=== PATIENT | male | born 1990 | race Caucasian/White ===

== ENCOUNTER → 2017-12-10 | Outpatient (CLI) | payer OTHER ==
--- NOTE | 2017-12-11 14:40 | USB ---
Reason for exam: clinical finding. Physical Findings: Nurse Summary: Left breast swollen and tender. US Breast LT Left complete breast ultrasound includes all four quadrants, the retroareolar region and axilla. Finding demonstrates no suspicious sonographic findings. No discrete abnormality to correspond to the patients pain and no solid or cystic mass. These results were verbally communicated with the patient and result sheet given to the patient on 12/10/17. ASSESSMENT: Negative, BI-RAD 1 RECOMMENDATION: Clinical management.
== END | disposition home or self-care (01) ==
LOC: RADUSWWP 14:13
PROVIDERS: ATTEND Family Medicine
DX: N62 Hypertrophy of breast (principal)

== ENCOUNTER 2018-01-26 00:32 | Emergency (ER) | payer OTHER ==
[2018-01-26 00:38] VITALS: TEMP 98.2
[2018-01-26 01:22] LABS: Basophils # (A) 0.1 k/uL (0-0.2); Basophils % (A) 1 %; Eosinophils # (A) 0.2 k/uL (0-0.7); Eosinophils % (A) 1 %; HCT 43.4 % (39.0-53.0); HGB 14.6 gm/dL (13.0-17.5); Lymphocytes # (A) 3.4 k/uL (1.0-4.8); Lymphocytes % (A) 28 %; MCH 29.8 pg (25.0-35.0); MCHC 33.6 g/dL (31.0-37.0); MCV 88.7 fL (80.0-100.0); Mean Platelet Volume 6.6; Monocytes # (A) 0.7 k/uL (0-1.0); Monocytes % (A) 5 %; Neutrophils # (A) 7.9 k/uL (1.3-7.7); Neutrophils % (A) 64 %; Platelet Count 345 k/uL (150-450); RBC 4.89 m/uL (4.30-5.90); RDW 12.6 % (11.5-15.5); WBC 12.4 k/uL (3.8-10.6)
[2018-01-26 01:30] LABS: INR 1.1 (<1.2); Partial Thromboplastin Time 23.2 sec (22.0-30.0); Prothrombin Time 10.4 sec (9.0-12.0)
[2018-01-26 01:33] LABS: ALT 63 U/L (21-72); AST 38 U/L (17-59); Albumin 4.5 g/dL (3.5-5.0); Alkaline Phosphatase 65 U/L (38-126); Anion Gap 12 mmol/L; Blood Urea Nitrogen 17 mg/dL (9-20); Carbon Dioxide 24 mmol/L (22-30); Chloride 104 mmol/L (98-107); Glucose 93 mg/dL (74-99); Magnesium 1.7 mg/dL (1.6-2.3); Potassium 3.7 mmol/L (3.5-5.1); Sodium 140 mmol/L (137-145); Total Bilirubin 0.4 mg/dL (0.2-1.3); Total Protein 7.5 g/dL (6.3-8.2)
--- NOTE | 2018-01-26 01:37 | XR ---
EXAMINATION TYPE: XR chest 2V DATE OF EXAM: 01/26/2018 COMPARISON: NONE HISTORY: Chest pain TECHNIQUE: Frontal and lateral views of the chest are obtained. FINDINGS: Heart and mediastinum are normal. Lungs are clear. Diaphragm is normal. Bony thorax appear s normal. IMPRESSION: Normal chest
[2018-01-26 01:43] LABS: Creatine Kinase 126 U/L (55-170)
[2018-01-26 01:56] LABS: Creatine Kinase MB 0.9 ng/mL (0.0-2.4); Troponin I <0.012 ng/mL (0.000-0.034)
--- NOTE | 2018-01-26 02:28 | ED ---
Chest Pain HPI - General Source: patient Mode of arrival: ambulatory Limitations: no limitations <Karis Feliz - Last Filed: 01/26/18 03:35> <Nitza Cespedes - Last Filed: 01/26/18 07:08> - General Chief Complaint: Chest Pain Stated Complaint: chest pain Time Seen by Provider: 01/26/18 01:33 - History of Present Illness Initial Comments: 27-year-old male patient presents to the emergency department today for complaints of left-sided chest pain. Patient states that symptoms started about 5 days ago. States that the pain is sharp and stabbing to the left side of the chest that radiates through to his back. Patient states when the pain is present he does have some cramping in his left arm as well. Patient states that the pain takes his breath away. He states the pain seems to come on mostly when he is lying in bed. Patient states that he is able to get the pain to resolve after taking deep breaths and walking around. He denies any nausea, vomiting, or sweats with this. Denies any palpitations. Denies any recent cough, congestion, or fevers. Patient denies any history of similar symptoms. States he does have a family history of CVA and heart disease. Patient denies any recent rash, fever, chills, abdominal pain, nausea, vomiting, diarrhea, constipation, back pain, numbness, tingling, dizziness, weakness, hematuria, dysuria, urinary urgency, urinary frequency, headache, visual changes, or any other complaints. (Karis Feliz) - Related Data Home Medications Medication Instructions Recorded Confirmed No Known Home Medications 01/26/18 01/26/18 Allergies Allergy/AdvReac Type Severity Reaction Status Date / Time cefaclor [From [facility]] Allergy Rash/Hives Verified 11/17/13 17:03 Review of Systems ROS Other: All systems not noted in ROS Statement are negative. <Karis Feliz - Last Filed: 01/26/18 03:35> ROS Other: All systems not noted in ROS Statement are negative. <Nitza Cespedes - Last Filed: 01/26/18 07:08> ROS Statement: Those systems with pertinent positive or pertinent negative responses have been documented in the HPI. EKG Findings - EKG Comments: EKG Findings:: EKG obtained at 0103 shows normal sinus rhythm with sinus arrhythmia. Ventricular rate is 70, CT interval is 138, QRS duration is 88, QTC is 364, QTC is 393. No evidence of ST elevation or depression. <TriniKaris Avi - Last Filed: 01/26/18 03:35> Past Medical History Past Medical History: No Reported History History of Any Multi-Drug Resistant Organisms: None Reported Past Surgical History: Orthopedic Surgery Additional Past Surgical History / Comment(s): Right hand fx 7 yrs ago Additional Past Anesthesia/Blood Transfusion Reaction / Comment(s): No transfusion Past Psychological History: No Psychological Hx Reported Smoking Status: Former smoker Past Alcohol Use History: Rare Past Drug Use History: Marijuana <Karis Feliz Avi - Last Filed: 01/26/18 03:35> General Exam Limitations: no limitations General appearance: alert, in no apparent distress, other (This is a well- developed, well-nourished adult male patient no acute distress. Vital signs upon presentation are temperature 98.2F, pulse 66, respirations 18, blood pressure 138/95, pulse ox 95% on room air.) Eye exam: Present: normal appearance, PERRL, EOMI. Absent: scleral icterus, conjunctival injection, periorbital swelling ENT exam: Present: normal exam, normal oropharynx, mucous membranes moist Respiratory exam: Present: normal lung sounds bilaterally. Absent: respiratory distress, wheezes, rales, rhonchi, stridor, chest wall tenderness Cardiovascular Exam: Present: regular rate, normal rhythm, normal heart sounds. Absent: systolic murmur, diastolic murmur, rubs, gallop, clicks GI/Abdominal exam: Present: soft, normal bowel sounds. Absent: distended, tenderness, guarding, rebound, rigid Neurological exam: Present: alert, oriented X3, CN II-XII intact Psychiatric exam: Present: normal affect, normal mood Skin exam: Present: warm, dry, intact, normal color. Absent: rash <Karis Feliz Avi - Last Filed: 01/26/18 03:35> Vital Signs 01/26/18 01/26/18 00:34 02:42 Temperature 98.2 F 98.2 F Pulse Rate 66 80 Respiratory 18 19 Rate Blood Pressure 138/95 125/58 O2 Sat by Pulse 95 96 Oximetry Chest Pain MDM <Karis Feliz Avi - Last Filed: 01/26/18 03:35> <Nitza Cespedes - Last Filed: 01/26/18 07:08> - [facility] RADIOLOG[facility]:Two-view x-ray of the chest is obtained. Heart mediastinum are normal. Lungs are clear. Diaphragm is normal. Bony thorax appears normal. Impression by Dr. Daily shows normal chest. MDM: 27-year-old male patient presents to the emergency department today for evaluation of left-sided chest pain. Physical examination was relatively unremarkable. Lungs are clear to auscultation with good air movement. Patient had no chest wall tenderness. X-ray of the chest showed no acute cardiopulmonary process. Labs reviewed and were unremarkable. Cardiac enzymes were negative. Did discuss findings and results with the patient. We did discuss pleurisy as a possible cause for his symptoms. He does have an appointment with a marine cargo inspector on Wednesday, he is urged to keep this appointment. Return parameters were discussed in detail. He verbalizes understanding and agrees with this plan. (Karis Feliz) I was available for consultation in the emergency department. The history and physical exam were done by the midlevel provider. I was consulted for this patient's care. I reviewed the case with the midlevel provider and based on their presentation of the patient, I agree with the assessment, medical decision making and plan of care as documented. (Nitza Cespedes) Disposition Is patient prescribed a controlled substance at d/c from ED?: No Time of Disposition: 02:28 <Karis Feliz - Last Filed: 01/26/18 03:35> <Nitza Cespedes - Last Filed: 01/26/18 07:08> Clinical Impression: Chest pain Disposition: HOME SELF-CARE Condition: Good Instructions: Chest Pain (ED) Additional Instructions: Increase fluids. Follow up with cardiology as you have planned on Wednesday. Return here immediately for any new, worsening, or concerning symptoms. Referrals: Juan Wells MD [Primary Care Provider] - 1-2 days
[2018-01-26 02:44] VITALS: BP 125/58; PULSE 80; RESP 19
== END 2018-01-26 02:42 | disposition home or self-care (01) ==
LOC: EC 00:32
DX: R07.9 Chest pain, unspecified (principal); Z87.891 Personal history of nicotine dependence; Z98.890 Other specified postprocedural states; Z88.1 Allergy status to other antibiotic agents; Z82.49 Family history of ischemic heart disease and other diseases of the circulatory system
CPT/HCPCS: 36415; 71046; 80053; 82550; 82553; 83735; 84484; 85025; 85610; 85730; 93005; 99285

== ENCOUNTER 2018-02-07 09:39 | Day surgery (SDC) | payer OTHER ==
[2018-02-02 14:54] VITALS: BMI 34.2
[~2018-02-07 09:39] MED LIST: LACTATED RINGERS 1,000 ML IV SCH
[2018-02-07 10:02] VITALS: RESP 16; TEMP 97
[2018-02-07] MEDS ORDERED: LIDOCAINE 1% 20 ML VIAL (10MG/ML) FOR IV START INTRADERMA ONE (10:03)
[2018-02-07] MEDS ORDERED: PROPOFOL 10 MG/ML 20 ML VIAL IV ONE (10:17)
[2018-02-07] MEDS ORDERED: LIDOCAINE 1% INJ 10MG/ML (20 ML MDV) ONE (10:17)
[2018-02-07] MEDS ORDERED: GLYCOPYRROLATE 0.2 MG/ML 2 ML VIAL ONE (10:17)
--- NOTE | 2018-02-07 11:02 | P.PCN ---
Date of Procedure: 02/07/18 Procedure(s) Performed: Procedures: 1. Esophagogastroduodenoscopy and biopsy. 2. Colonoscopy and biopsy. Preoperative diagnosis: Abdominal pain, change in bowel habits and intermittent bleeding. Postoperative diagnosis: 1. Very small sliding hiatal hernia with no obvious preservatives complicated reflux disease. 2. Minimal gastritis and duodenitis. 3. Colon and terminal ileum essentially within normal limits with minor nonspecific changes in the terminal ileum not typical of inflammatory bowel disease. 4. Biopsies obtained from the duodenum, antrum, esophagus , terminal ileum and random colon. Preparation: HalfLytely prep. Sedation: Was provided by anesthesia. Brief clinical history: The patient is a 27-year-old male who I have evaluated recently because of change in bowel habits, intermittent bleeding and abdominal discomfort that he has been experiencing for the last 5 or 6 months. Prior to that, he was having regular bowel movements and had no prior GI complaints. This evaluation is to assess for inflammatory bowel disease or other pathology. Procedure: With the patient on his left lateral decubitus position and after informed consent and adequate sedation, I passed the Olympus-GIF 160 video upper endoscope through the cricopharyngeus down the esophagus. GE junction was around 40 mm from the incisors and there was a very small sliding hiatal hernia but no obvious esophagitis or complicated reflux disease. The endoscope was then passed into the stomach which was insufflated with air and inspected in detail including the retroflex view in the cardia. There was minimal mottling and erythema in the antrum. Pyloric channel did not show any ulcers. Duodenal bulb showed minimal erythema but no ulcers or erosions. Post bulbar area and descending duodenum appeared essentially within normal limits. I obtained biopsies from the duodenum, antrum and esophagus then the endoscope was withdrawn and then proceeded with the colonoscopy. Perianal area did not show any fissures or fistulas. There were no masses felt on digital rectal examination. The Olympus CFQ 160L video colonoscope was then inserted in the rectum in the usual fashion and advanced to the cecum. I intubated the ileocecal valve and examined the terminal ileum. The terminal ileum showed an occasional fading erosion which I did not think it has any clinical significance but I obtained multiple biopsies from those areas. The colon did not show any mucosal changes to suggest inflammatory bowel disease. I obtained random colon biopsies as well. There were no diverticular disease or polyps or other findings in the colon. I retroflexed the endoscope in the rectum before the endoscope was withdrawn. The patient tolerated the procedure well. Plan: The patient was reassured. Will await biopsy results and make further plans. I will keep you updated on his progress.
[2018-02-07 11:21] VITALS: BP 113/77; PULSE 90
--- NOTE | 2018-02-09 14:33 | CDI ---
Outpatient Documentation Clarification Form Date: 02/09/18 CDS/Book Salesman Name: Aubrie Mckenzie Phone: If any questions, call Ledy Claros Audio Visual Equipment Rental Clerk at [phone] Patient Name: Noam Kay Admit Date: 02/07/18 Discharge Date: 02/07/18 ATTENTION: The [facility] Coding Staff appreciate your assistance in clarifying documentation. Please respond to the clarification below the line at the bottom and electronically sign. The [facility] Coding staff will review the response and follow-up if needed. Please note: Queries are made part of the Legal Health Record. If you have any questions, please contact the Audio Visual Equipment Rental Clerk. Dear Dr. Hurt, What is the source or cause of the Rectal or GI bleed? Multiple coding resources , that we are required to follow, state that the physician should identify a source and the children's author may not assume. A. Gastritis B. Duodenitis C. Ileitis D. Other, please specify Thank you for your kind consideration. MTDD
== END 2018-02-07 11:55 | disposition home or self-care (01) ==
LOC: ORWHC2ENDO 09:39
DX: K62.5 Hemorrhage of anus and rectum (principal); K29.50 Unspecified chronic gastritis without bleeding; K44.9 Diaphragmatic hernia without obstruction or gangrene; K52.9 Noninfective gastroenteritis and colitis, unspecified; K29.80 Duodenitis without bleeding; Z88.1 Allergy status to other antibiotic agents
CPT/HCPCS: 88305; 45380; 43239; J2001; J2704

== ENCOUNTER 2018-08-10 15:32 | Emergency (ER) | payer OTHER ==
--- NOTE | 2018-08-10 17:25 | ED ---
Male Urogenital HPI - General Chief complaint: Urogenital Stated complaint: abd pain Time Seen by Provider: 08/10/18 16:51 Source: patient Mode of arrival: ambulatory Limitations: no limitations - History of Present Illness Initial comments: 28-year-old male presents to the emergency Department with chief complaint of testicular pain. Patient states started 3 days ago it was improving but worsened now. He has no dysuria no hematuria denies any concerns for STDs. Patient has no penile drainage. Denies any noticed swelling or erythema. Patient does have some lower abdominal pain. Patient states that his never had any like this in the past. - Related Data Home Medications Medication Instructions Recorded Confirmed Amoxicillin 500 mg PO DAILY 08/10/18 Allergies Allergy/AdvReac Type Severity Reaction Status Date / Time [facility] Allergy Rash/Hives Verified 08/10/18 17:25 Review of Systems ROS Statement: Those systems with pertinent positive or pertinent negative responses have been documented in the HPI. ROS Other: All systems not noted in ROS Statement are negative. Past Medical History Past Medical History: Chest Pain / Angina, GI Bleed Additional Past Medical History / Comment(s): RECENT EC VISIT FOR CP, W/U NL; HAS ECHO 02/03/18, STRESS TEST 02/14/18. HAVING DIARRHEA, SOME BLOOD IN STOOL OCC, ONSET 08/2017 EST, ABD DISCOMFORT. History of Any Multi-Drug Resistant Organisms: None Reported Past Surgical History: Appendectomy, Orthopedic Surgery Additional Past Surgical History / Comment(s): Right hand fx 7 yrs ago Past Anesthesia/Blood Transfusion Reactions: No Reported Reaction Additional Past Anesthesia/Blood Transfusion Reaction / Comment(s): No transfusion Past Psychological History: No Psychological Hx Reported Smoking Status: Former smoker Past Alcohol Use History: None Reported Past Drug Use History: Marijuana - Past Family History Mother Family Medical History: No Reported History General Exam Limitations: no limitations General appearance: alert, in no apparent distress Head exam: Present: atraumatic, normocephalic, normal inspection Respiratory exam: Present: normal lung sounds bilaterally. Absent: respiratory distress, wheezes, rales, rhonchi, stridor Cardiovascular Exam: Present: regular rate, normal rhythm, normal heart sounds. Absent: systolic murmur, diastolic murmur, rubs, gallop, clicks GI/Abdominal exam: Present: soft, normal bowel sounds. Absent: distended, tenderness, guarding, rebound, rigid exam: Present: normal inspection, testicular tenderness, circumcision. Absent: urethral discharge, scrotal swelling, vertical testicular lie Course Vital Signs 08/10/18 16:18 Temperature 98.4 F Pulse Rate 96 Respiratory 16 Rate Blood Pressure 134/74 O2 Sat by Pulse 96 Oximetry Medical Decision Making - Medical Decision Making 28 show male presented for abdominal pain, scrotal pain. Patient has bilateral hydroceles, varicocele. Patient will wear supportive underwear will follow-up with urology. Patient has 2+ ketones though is tolerating oral intake return parameters were discussed. - Lab Data Lab Results 08/10/18 Range/Units 17:30 Urine Color Yellow Urine Appearance Clear (Clear) Urine pH 5.5 (5.0-8.0) Ur Specific [place] 1.029 (1.001-1.035) Urine Protein Trace H (Negative) Urine Glucose (UA) Negative (Negative) Urine Ketones 3+ H (Negative) Urine Blood Negative (Negative) Urine Nitrite Negative (Negative) Urine Bilirubin Negative (Negative) Urine Urobilinogen <2.0 (<2.0) mg/dL Ur Leukocyte Esterase Negative (Negative) Disposition Clinical Impression: Varicocele, Hydrocele Disposition: HOME SELF-CARE Condition: Stable Instructions (If sedation given, give patient instructions): Hydrocele (ED), Testicle Pain (ED), Varicocele (ED) Additional Instructions: Please return to the Emergency Department if symptoms worsen or any other concerns. Is patient prescribed a controlled substance at d/c from ED?: No Referrals: None,Stated [Primary Care Provider] - 1-2 days Ramone Childs MD [STAFF PHYSICIAN] - 1-2 days Time of Disposition: 18:45
[2018-08-10 17:44] LABS: Appearance,Urine Clear (Clear); Bilirubin,Urine Negative (Negative); Blood,Urine Negative (Negative); Color,Urine Yellow; Glucose,Urine (UA) Negative (Negative); Ketones,Urine 3+ (Negative); Leukocyte Esterase,Urine Negative (Negative); Nitrite,Urine Negative (Negative); PH, Urine 5.5 (5.0-8.0); Protein,Urine Trace (Negative); Specific Gravity,Urine 1.029 (1.001-1.035); Urobilinogen,Urine <2.0 mg/dL (<2.0)
--- NOTE | 2018-08-10 18:14 | US ---
EXAMINATION TYPE: US scrotum with doppler. Grayscale and color Doppler Duplex imaging performed of terrence charles scrotum. DATE OF EXAM: 08/10/2018 COMPARISON: NONE CLINICAL HISTORY: Pain. Pain bilateral testes for 4 days EXAM MEASUREMENTS: TESTICLES: Right Testicle: 3.8 x 2.2 x 3.1 cm Left Testicle: 3.9 x 2.0 x 2.6 cm EPIDIDYMIS HEAD: Right Epididymis: 1.4 cm Left Epididymis: 0.8 cm Doppler performed to assess for testicular vascularity; good bilateral color flow and waveforms are s een. There is no evidence of testicular torsion. Presence of hydroceles: fluid collection lateral to right testicle = 3.5cm and medial to left testic le = 2.3cm Presence of varicoceles: yes, lateral to left testicle Cystic area left epididymis = 0.4 x 0.4 x 0.5cm IMPRESSION: No testicular torsion or mass. Bilateral hydroceles. Mild left-sided varicocele.
[2018-08-10 18:59] VITALS: BP 130/70; PULSE 82; RESP 18; TEMP 98.2
[2018-08-11 14:33] LABS: N. gonorrhoeae,PCR Negative (Neg,Equiv); Neisseria Source Urine
[2018-08-11 14:47] LABS: C. trachomatis,PCR Negative (Neg,Equiv); Chlamydia trachomatis Source Urine
--- NOTE | 2018-08-11 18:07 | ED ---
Medical Decision Making - Medical Decision Making pt called back to ER because he did not receive prescription of ibuprofen prior to DC. Ibuprofen was sent to pharmacy of pt choice. Was not involved in management of patient. - Lab Data Lab Results 08/10/18 08/10/18 08/10/18 Range/Units 17:30 17:30 17:30 Urine Color Yellow Urine Appearance Clear (Clear) Urine pH 5.5 (5.0-8.0) Ur Specific [place] 1.029 (1.001-1.035) Urine Protein Trace H (Negative) Urine Glucose (UA) Negative (Negative) Urine Ketones 3+ H (Negative) Urine Blood Negative (Negative) Urine Nitrite Negative (Negative) Urine Bilirubin Negative (Negative) Urine Urobilinogen <2.0 (<2.0) mg/dL Ur Leukocyte Esterase Negative (Negative) Chlamydia Source Urine Chlamydia DNA (PCR) Negative (Neg,Equiv) N. gonorrhoeae Source Urine N.gonorrhoeae DNA Probe Negative (Neg,Equiv) Disposition Clinical Impression: Varicocele, Hydrocele Disposition: HOME SELF-CARE Condition: Stable Instructions (If sedation given, give patient instructions): Hydrocele (ED), Varicocele (ED), Testicle Pain (ED) Additional Instructions: Please return to the Emergency Department if symptoms worsen or any other concerns. Prescriptions: Ibuprofen [Motrin] 600 mg PO Q8HR PRN #30 tab PRN Reason: Pain Ibuprofen [Motrin] 600 mg PO Q6HR PRN #40 day PRN Reason: Pain Is patient prescribed a controlled substance at d/c from ED?: No Referrals: Ramone Childs MD [STAFF PHYSICIAN] - 1-2 days None,Stated [Primary Care Provider] - 1-2 days
== END 2018-08-10 18:55 | disposition home or self-care (01) ==
LOC: EC 15:32
DX: N43.3 Hydrocele, unspecified (principal); I86.1 Scrotal varices; Z88.1 Allergy status to other antibiotic agents; Z87.891 Personal history of nicotine dependence
CPT/HCPCS: 76870; 81003; 87491; 87591; 99284

== ENCOUNTER 2018-08-29 01:17 | Emergency (ER) | payer OTHER ==
[2018-08-29] MEDS ORDERED: LIDOCAINE VISCOUS 2% 15 ML CUP MUCOUS MEM STA (02:01)
--- NOTE | 2018-08-29 03:18 | ED ---
ENT HPI - General Chief complaint: ENT Stated complaint: Sore Throat,Swelling,Headaches Time Seen by Provider: 08/29/18 01:27 Source: patient, family Mode of arrival: ambulatory Limitations: no limitations - History of Present Illness Initial comments: This patient is 28-year-old man who presents to be evaluated for sore throat that does radiate to bilateral ears. The patient states that the pain came on 2 to 2-1/2 weeks ago. Patient states she has had previous tonsillitis and that this episode feels different. He describes a sharp pain. States that it is worse with swallowing. Patient did have some leftover amoxicillin that he had taken. He states that he only had a couple of days this and that it did seem to start to do some but then the medication and it and the pain seems worse. Patient denies any difficulty with breathing. He is able swallow but this does make the pain worse. MD complaint: sore throat, ear pain Onset/Timin -: week(s) Location: R ear, L ear, throat Severity: moderate Quality: stabbing, aching Consistency: constant Improves with: none Worsens with: swallowing Associated Symptoms: sore throat - Related Data Home Medications Medication Instructions Recorded Confirmed Amoxicillin 500 mg PO DAILY 08/10/18 Previous Rx's Medication Instructions Recorded Ibuprofen [Motrin] 600 mg PO Q8HR PRN #30 tab 08/10/18 Ibuprofen [Motrin] 600 mg PO Q6HR PRN #40 day 08/11/18 Amoxicillin 875 mg PO Q12HR #14 tablet 08/29/18 predniSONE 50 mg PO DAILY #5 tab 08/29/18 Allergies Allergy/AdvReac Type Severity Reaction Status Date / Time [facility] Allergy Rash/Hives Verified 08/29/18 01:27 Review of Systems ROS Statement: Those systems with pertinent positive or pertinent negative responses have been documented in the HPI. ROS Other: All systems not noted in ROS Statement are negative. Constitutional: Denies: fever, chills ENT: Reports: ear pain, throat pain. Denies: dental pain, hearing loss, congestion Respiratory: Denies: cough, dyspnea, stridor Cardiovascular: Denies: chest pain Gastrointestinal: Denies: abdominal pain Musculoskeletal: Denies: back pain Skin: Denies: rash Neurological: Denies: headache Past Medical History Past Medical History: Chest Pain / Angina, GI Bleed Additional Past Medical History / Comment(s): RECENT EC VISIT FOR CP, W/U NL; HAS ECHO 02/03/18, STRESS TEST 02/14/18. HAVING DIARRHEA, SOME BLOOD IN STOOL OCC, ONSET 08/2017 EST, ABD DISCOMFORT. History of Any Multi-Drug Resistant Organisms: None Reported Past Surgical History: Appendectomy, Orthopedic Surgery Additional Past Surgical History / Comment(s): Right hand fx 7 yrs ago Past Anesthesia/Blood Transfusion Reactions: No Reported Reaction Additional Past Anesthesia/Blood Transfusion Reaction / Comment(s): No transfusion Past Psychological History: No Psychological Hx Reported Smoking Status: Former smoker Past Alcohol Use History: None Reported Past Drug Use History: Marijuana - Past Family History Mother Family Medical History: No Reported History General Exam Limitations: no limitations General appearance: alert, in no apparent distress Head exam: Present: atraumatic, normocephalic Eye exam: Present: normal appearance, EOMI. Absent: scleral icterus, conjunctival injection ENT exam: Present: mucous membranes moist, other (There is cobblestoning of the pharynx. Uvula is midline with no edema. No evidence of peritonsillar abscess. Voice is normal.) Neck exam: Present: normal inspection, full ROM, lymphadenopathy (There are bilateral anterior cervical nodes. No posterior nodes). Absent: tenderness, meningismus Respiratory exam: Present: normal lung sounds bilaterally. Absent: respiratory distress, wheezes, rales, rhonchi, stridor Cardiovascular Exam: Present: regular rate, normal rhythm, normal heart sounds GI/Abdominal exam: Present: soft. Absent: distended, tenderness, guarding, rebound, organomegaly, mass Skin exam: Present: warm, dry, intact, normal color. Absent: rash Course Vital Signs 08/29/18 01:20 Temperature 98.5 F Pulse Rate 92 Respiratory 18 Rate Blood Pressure 134/88 O2 Sat by Pulse 97 Oximetry Medical Decision Making - Medical Decision Making Patient's 28-year-old man with pharyngitis. Given the cobblestoning appearance, the patient be treated with short course of steroid and also with antibiotic given the duration of his symptoms. Did discuss the importance of following up with ENT to have a better visualization if his symptoms have not improved with treatment, or if there is any worsening. - Lab Data Lab Results 08/29/18 Range/Units 01:51 Group A Strep Rapid Negative (Negative) Disposition Clinical Impression: Acute pharyngitis Disposition: HOME SELF-CARE Condition: Good Instructions (If sedation given, give patient instructions): Pharyngitis (ED) Prescriptions: Amoxicillin 875 mg PO Q12HR #14 tablet predniSONE 50 mg PO DAILY #5 tab Is patient prescribed a controlled substance at d/c from ED?: No Referrals: None,Stated [Primary Care Provider] - 1-2 days Luis Burgos DO [Doctor of Osteopathic Medicine] - 1-2 days
[2018-08-29 03:34] VITALS: BP 132/78; PULSE 70; RESP 16; TEMP 97.9
== END 2018-08-29 03:34 | disposition home or self-care (01) ==
LOC: EC 01:17
DX: J02.9 Acute pharyngitis, unspecified (principal); Z88.1 Allergy status to other antibiotic agents; Z87.891 Personal history of nicotine dependence
CPT/HCPCS: 87081; 87430; 99284

== ENCOUNTER 2018-09-09 21:29 | Emergency (ER) | payer OTHER ==
[2018-09-09 21:48] VITALS: BP 151/88; PULSE 93; RESP 16; TEMP 98.4
--- NOTE | 2018-09-09 22:21 | ED ---
ENT HPI - General Chief complaint: ENT Stated complaint: sore throat Time Seen by Provider: 09/09/18 22:20 Source: patient Mode of arrival: ambulatory Limitations: no limitations - History of Present Illness Initial comments: Noam is a 28 yo M with no significant PMH who presents to the ER today for re- evaluation of sore throat. Patient states he's been having a sore throat for a month and a half, he reports that it's worse in the morning. Patient states that he was evaluated in the emergency department and given a prescription for amoxicillin which she reports he took with no relief. Patient states that he has contacted ENT for follow-up and cannot be seen until midmonth next month. Patient reports he feels that his intracervical lymph nodes are swollen and he occasionally has electric-like shock pain in his throat. Patient also reports that maybe 5 times in the past month he has woken up and coughed up a scant amount of blood from his throat. Patient states that occasionally he has taken ibuprofen for the discomfort in his throat. Patient states that he knows something is wrong and he feels like he needs a scope however since he can be seen by ENT for 6 weeks he return to the ER for evaluation. Patient reports he currently doesn't have a primary care physician but doesn't feel that he needs to follow up with one because they won't be able to do anything but a refer him to ENT either. denies any nasal congestion or feeling of postnasal drip. He has no history of seasonal ALLERGIES and declines treatment for this. He states that he knows that this is something more serious than that. - Related Data Home Medications Medication Instructions Recorded Confirmed Amoxicillin 500 mg PO DAILY 08/10/18 Previous Rx's Medication Instructions Recorded Ibuprofen [Motrin] 600 mg PO Q8HR PRN #30 tab 08/10/18 Ibuprofen [Motrin] 600 mg PO Q6HR PRN #40 day 08/11/18 Amoxicillin 875 mg PO Q12HR #14 tablet 08/29/18 predniSONE 50 mg PO DAILY #5 tab 08/29/18 Allergies Allergy/AdvReac Type Severity Reaction Status Date / Time cefaclor [From [facility]] Allergy Rash/Hives Verified 08/29/18 01:27 Review of Systems ROS Statement: Those systems with pertinent positive or pertinent negative responses have been documented in the HPI. ROS Other: All systems not noted in ROS Statement are negative. Past Medical History Past Medical History: Chest Pain / Angina, GI Bleed Additional Past Medical History / Comment(s): RECENT EC VISIT FOR CP, W/U NL; HAS ECHO 02/03/18, STRESS TEST 02/14/18. HAVING DIARRHEA, SOME BLOOD IN STOOL OCC, ONSET 08/2017 EST, ABD DISCOMFORT. History of Any Multi-Drug Resistant Organisms: None Reported Past Surgical History: Appendectomy, Orthopedic Surgery Additional Past Surgical History / Comment(s): Right hand fx 7 yrs ago Past Anesthesia/Blood Transfusion Reactions: No Reported Reaction Additional Past Anesthesia/Blood Transfusion Reaction / Comment(s): No transfusion Past Psychological History: No Psychological Hx Reported Smoking Status: Former smoker Past Alcohol Use History: None Reported Past Drug Use History: Marijuana - Past Family History Mother Family Medical History: No Reported History General Exam - General Exam Comments Initial Comments: Physical Exam GENERAL: Patient is well-developed and well-nourished. Patient is nontoxic and well-hydrated and is in no distress. HENT: Normocephalic, Atraumatic. TMs normal bilaterally Normal nares bilaterally, Posterior oropharynx, no tonsillar erythema or exudate, no petechia No uvular swelling or asymmetry No cervical lymphadenopathy EYES: PERRL, EOMI PULMONARY: Unlabored respirations. No audible rales rhonchi or wheezing was noted. CARDIOVASCULAR: There is a regular rate and rhythm without any murmurs gallops or rubs. ABDOMEN: Nondistended SKIN: No rashes : Deferred NEUROLOGIC: Patient is alert and oriented x3. Moving all extremities spontaneously MUSCULOSKELETAL: No obvious injuries PSYCHIATRIC: Normal psychiatric evaluation. Limitations: no limitations Course Vital Signs 09/09/18 21:41 Temperature 98.4 F Pulse Rate 93 Respiratory 16 Rate Blood Pressure 151/88 O2 Sat by Pulse 93 L Oximetry Medical Decision Making - Medical Decision Making The patient was seen and evaluated, history was obtained from the patient Patient is concerned that there is something "serious" going on with his throat. Patient states that he knows he needs to be evaluated by ENT but because he can get follow-up for 6 weeks he return to the ER today for reevaluation. Patient states he knows that we are able to scope him here to feels like it will be done because of issues. Patient also denies any possibility that his symptoms could be due to postnasal drip he is not amenable to attempting treatment for seasonal ALLERGIES or postnasal drip. I did offer to order a chest x-ray due to the patient reporting he has intermittently coughed up blood over the past month also offered to test for Starr. However patient was upset at the prospect of being sent home and stated t hat these tests were not necessary. Patient upset that he is not getting ENT scope during this visit. Patient again insisting that he is not being scope due to insurance issues and states that were only not doing it because we can't [place]. I advised the patient there is no emergent indication for this. I advised the patient that I do think he needs follow-up with ENT for further evaluation however is not necessary tonight the ER. Because he was not getting a scope the patient decided to walk out of the emergency department without getting any testing done Disposition Clinical Impression: Sore throat, chronic Disposition: HOME SELF-CARE Condition: Stable Instructions (If sedation given, give patient instructions): Postnasal Drip (DC) Is patient prescribed a controlled substance at d/c from ED?: No Referrals: None,Stated [Primary Care Provider] - 1-2 days Marlene Dick MD [REFERRING] - 1-2 days Luis Burgos DO [Doctor of Osteopathic Medicine] - 1-2 days Xu Cabrera MD [STAFF PHYSICIAN] - 1-2 days Frank Hogan MD [STAFF PHYSICIAN] - 1-2 days
== END 2018-09-09 23:24 | disposition home or self-care (01) ==
LOC: EC 21:29
DX: J31.2 Chronic pharyngitis (principal); Z87.891 Personal history of nicotine dependence; Z88.1 Allergy status to other antibiotic agents
CPT/HCPCS: 99282

== ENCOUNTER 2018-09-22 00:03 | Emergency (ER) | payer OTHER ==
[2018-09-22] MEDS ORDERED: IBUPROFEN 600 MG STARTER PACK 4 TAB BTL PO STA (01:37)
[2018-09-22] MEDS ORDERED: methylPREDNISolone SOD SUCCI 125 MG/2 ML VIAL IM ONE (01:37)
[2018-09-22] MEDS ORDERED: CYCLOBENZAPRINE 10MG STARTER 3 TAB BTL PO STA (01:37)
[2018-09-22] MEDS ORDERED: KETOROLAC 30 MG/ML 1 ML VIAL IM STA (01:37)
--- NOTE | 2018-09-22 01:40 | ED ---
General Adult HPI - General Chief complaint: Headache Stated complaint: Headache,Neck Swelling Time Seen by Provider: 09/22/18 01:16 Source: patient Mode of arrival: ambulatory Limitations: no limitations - History of Present Illness Initial comments: 28 year-old male patient presents to the emergency department for evaluation of right neck pain and headache. Patient states that he has had this pain for the last 5-6 days. Patient states the right side of his neck feels tight. Patient states that the neck pain started first and then started radiating up the right side of the back of his head. Patient states the pain increases when he turns his head. He denies any fever, chills, numbness, or tingling to the upper extremities. He denies any injury to the neck. Denies any blurred vision, double vision, nausea, or vomiting. Patient denies any recent rash, shortness breath, chest pain, abdominal pain, diarrhea, constipation, back pain, numbness, tingling, dizziness, weakness, hematuria, dysuria, urinary urgency, urinary frequency, or any other complaints. - Related Data Home Medications Medication Instructions Recorded Confirmed Amoxicillin 500 mg PO DAILY 08/10/18 Previous Rx's Medication Instructions Recorded Ibuprofen [Motrin] 600 mg PO Q8HR PRN #30 tab 08/10/18 Ibuprofen [Motrin] 600 mg PO Q6HR PRN #40 day 08/11/18 Amoxicillin 875 mg PO Q12HR #14 tablet 08/29/18 predniSONE 50 mg PO DAILY #5 tab 08/29/18 Cyclobenzaprine [Flexeril] 10 mg PO TID #15 tab 09/22/18 Ibuprofen [Motrin] 600 mg PO Q8HR PRN #30 tab 09/22/18 Allergies Allergy/AdvReac Type Severity Reaction Status Date / Time cefaclor [From [facility]] Allergy Rash/Hives Verified 09/22/18 00:08 Review of Systems ROS Statement: Those systems with pertinent positive or pertinent negative responses have been documented in the HPI. ROS Other: All systems not noted in ROS Statement are negative. Past Medical History Past Medical History: Chest Pain / Angina, GI Bleed Additional Past Medical History / Comment(s): RECENT EC VISIT FOR CP, W/U NL; HAS ECHO 02/03/18, STRESS TEST 02/14/18. HAVING DIARRHEA, SOME BLOOD IN STOOL OCC, ONSET 08/2017 EST, ABD DISCOMFORT. History of Any Multi-Drug Resistant Organisms: None Reported Past Surgical History: Appendectomy, Orthopedic Surgery Additional Past Surgical History / Comment(s): Right hand fx 7 yrs ago Past Anesthesia/Blood Transfusion Reactions: No Reported Reaction Additional Past Anesthesia/Blood Transfusion Reaction / Comment(s): No transfusion Past Psychological History: No Psychological Hx Reported Smoking Status: Former smoker Past Alcohol Use History: None Reported Past Drug Use History: Marijuana - Past Family History Mother Family Medical History: No Reported History General Exam Limitations: no limitations General appearance: alert, in no apparent distress, other (Physical well- developed, well-nourished adult male patient in no acute distress. Vital signs upon presentation are temperature 98.6F, pulse 92, respirations 20, blood pressure 146/84, pulse ox 97% on room air.) Eye exam: Present: normal appearance, PERRL, EOMI. Absent: scleral icterus, conjunctival injection, periorbital swelling ENT exam: Present: normal exam, normal oropharynx, mucous membranes moist Neck exam: Present: tenderness (Right lateral neck tenderness), full ROM. Absent: normal inspection, meningismus, lymphadenopathy Respiratory exam: Present: normal lung sounds bilaterally. Absent: respiratory distress, wheezes, rales, rhonchi, stridor Cardiovascular Exam: Present: regular rate, normal rhythm, normal heart sounds. Absent: systolic murmur, diastolic murmur, rubs, gallop, clicks GI/Abdominal exam: Present: soft, normal bowel sounds. Absent: distended, tenderness, guarding, rebound, rigid Neurological exam: Present: alert, oriented X3, CN II-XII intact, other (Strength in all 4 extremities is 5/5.) Psychiatric exam: Present: normal affect, normal mood Skin exam: Present: warm, dry, intact, normal color. Absent: rash Course Vital Signs 09/22/18 09/22/18 00:05 02:18 Temperature 98.6 F 97.8 F Pulse Rate 92 75 Respiratory 20 19 Rate Blood Pressure 146/84 128/94 O2 Sat by Pulse 97 19 L Oximetry Medical Decision Making - Medical Decision Making 28 year-old male patient presents to the emergency department today for evaluation of right-sided neck pain and headache. Physical examination is unremarkable. Patient is neurologically intact no focal deficits. Patient symptoms are consistent with muscle spasm of the neck. He'll be started on anti-inflammatory medication and muscle relaxers. He is instructed to follow-up with his primary care physician for recheck in 1-2 days. Return parameters were discussed in detail. He verbalizes understanding and agrees with this plan. Disposition Clinical Impression: Muscle spasms of neck Disposition: HOME SELF-CARE Condition: Good Instructions (If sedation given, give patient instructions): Acute Headache (ED), Muscle Spasm (ED) Additional Instructions: Take medications as directed. Follow-up with your primary care physician for recheck in 1-2 days. Return to the emergency department immediately for any new, worsening, or concerning symptoms Prescriptions: Cyclobenzaprine [Flexeril] 10 mg PO TID #15 tab Ibuprofen [Motrin] 600 mg PO Q8HR PRN #30 tab PRN Reason: Pain Is patient prescribed a controlled substance at d/c from ED?: No Referrals: None,Stated [Primary Care Provider] - 1-2 days Time of Disposition: 01:40
[2018-09-22 02:21] VITALS: BP 128/94; PULSE 75; RESP 19; TEMP 97.8
== END 2018-09-22 02:19 | disposition home or self-care (01) ==
LOC: EC 00:03
DX: M62.838 Other muscle spasm (principal); R51 Headache; R22.1 Localized swelling, mass and lump, neck; Z87.891 Personal history of nicotine dependence; Z88.1 Allergy status to other antibiotic agents
CPT/HCPCS: 99283; 96372 ×2; J2930; J1885

== ENCOUNTER → 2018-09-29 | Outpatient (CLI) | payer OTHER ==
--- NOTE | 2018-09-29 15:53 | XR ---
Cervical spine HISTORY: Neck pain 5 views of the cervical spine Cervical vertebral bodies show preserved height and bone mineralization. Minimal anterolisthesis grad e 1 C2-3, C3-4, C4-5 is likely physiologic. Disc spaces and prevertebral soft tissues are normal. No significant foraminal encroachment. IMPRESSION: No significant degenerative disc changes are evident. Additional findings above.
== END | disposition home or self-care (01) ==
LOC: RADXRMAIN 13:35
PROVIDERS: ATTEND Internal Medicine
DX: M43.12 Spondylolisthesis, cervical region (principal)
CPT/HCPCS: 72050

== ENCOUNTER → 2018-10-11 | Outpatient (CLI) | payer OTHER ==
--- NOTE | 2018-10-11 11:43 | MR ---
EXAMINATION TYPE: MR cervical spine wo con DATE OF EXAM: 10/11/2018 COMPARISON: Plain film 09/29/2018 HISTORY: Neck pain, headaches, lt arm weakness x 3 mos TECHNIQUE: Multiplanar, multisequence images of the cervical spine were acquired. C2-C3: No evidence for degenerative disc disease. No disc bulge/herniation or protrusion. No Canal stenosis. Foramina are patent bilaterally. C3-C4: No evidence for degenerative disc disease. No disc bulge/herniation or protrusion. No Canal stenosis. Foramina are patent bilaterally. C4-C5: No evidence for degenerative disc disease. No disc bulge/herniation or protrusion. No Canal stenosis. Foramina are patent bilaterally. C5-C6: No evidence for degenerative disc disease. No disc bulge/herniation or protrusion. No Canal stenosis. Foramina are patent bilaterally. C6-C7: No evidence for degenerative disc disease. No disc bulge/herniation or protrusion. No Canal stenosis. Foramina are patent bilaterally. C7-T1: No evidence for degenerative disc disease. No disc bulge/herniation or protrusion. No Canal stenosis. Foramina are patent bilaterally. Cervical segments are intact. There is normal alignment. Cervical spinal cord is of normal signal. Craniovertebral junction relationships are within normal limits. Cervical vertebral bodies show pre served height and bone marrow signal. There is prominence of the soft tissue at the base of the tongu e is noted at the level of the vallecula likely represents lymphoid tissue. IMPRESSION: Normal cervical spine MRI. Prominence of soft tissue at the base of the tongue, likely represent prom inent lymphoid tissue, follow-up as indicated..
== END | disposition home or self-care (01) ==
LOC: RADMRIMAIN 09:46
PROVIDERS: ATTEND Internal Medicine
DX: M54.2 Cervicalgia (principal)
CPT/HCPCS: 72141

== ENCOUNTER 2019-09-29 22:50 | Emergency (ER) | payer OTHER ==
[2019-09-29] MEDS ORDERED: ONDANSETRON 4 MG/2 ML VIAL IVP STA (23:22)
[2019-09-29] MEDS ORDERED: SODIUM CHLORIDE 0.9% 1,000 ML IV STA ×2 (23:22)
[2019-09-29] MEDS ORDERED: PANTOPRAZOLE 40 MG/10 ML VIAL IVP STA (23:22)
[2019-09-29] MEDS ORDERED: KETOROLAC 30 MG/ML 1 ML VIAL IVP STA (23:22)
--- NOTE | 2019-09-29 23:25 | ED ---
Abdominal Pain HPI - General Chief Complaint: Abdominal Pain Stated Complaint: Abdominal pain, blood in stool Time Seen by Provider: 09/29/19 23:05 Source: patient, RN notes reviewed, old records reviewed Mode of arrival: ambulatory Limitations: no limitations - History of Present Illness Initial Comments: Patient is a 29-year-old male who presents to the emergency department today for evaluation with complaints of left-sided abdominal pain 3 Patient reports his back and episode of bloody stool today. Patient reports that he's had no changes in urination. He denies any chest pain or shortness of breath. He does report that he has history of GERD. He is not on on medications to treat the GERD. He denies any other complaints. - Related Data Home Medications Medication Instructions Recorded Confirmed Amoxicillin 500 mg PO DAILY 08/10/18 Previous Rx's Medication Instructions Recorded Ibuprofen [Motrin] 600 mg PO Q8HR PRN #30 tab 08/10/18 Ibuprofen [Motrin] 600 mg PO Q6HR PRN #40 day 08/11/18 Amoxicillin 875 mg PO Q12HR #14 tablet 08/29/18 predniSONE 50 mg PO DAILY #5 tab 08/29/18 Cyclobenzaprine [Flexeril] 10 mg PO TID #15 tab 09/22/18 Ibuprofen [Motrin] 600 mg PO Q8HR PRN #30 tab 09/22/18 Amoxic-Pot Clav 875-125Mg 1 tab PO BID 5 Days #10 tab 09/30/19 [Augmentin 875-125] Pantoprazole [Protonix] 40 mg PO DAILY #20 tablet. 09/30/19 Allergies Allergy/AdvReac Type Severity Reaction Status Date / Time cefaclor [From [facility]] Allergy Rash/Hives Verified 09/29/19 23:04 Review of Systems ROS Statement: Those systems with pertinent positive or pertinent negative responses have been documented in the HPI. ROS Other: All systems not noted in ROS Statement are negative. Past Medical History Past Medical History: Chest Pain / Angina, GERD/Reflux, GI Bleed Additional Past Medical History / Comment(s): RECENT EC VISIT FOR CP, W/U NL; HAS ECHO 02/03/18, STRESS TEST 02/14/18. HAVING DIARRHEA, SOME BLOOD IN STOOL OCC, ONSET 08/2017 EST, ABD DISCOMFORT. History of Any Multi-Drug Resistant Organisms: None Reported Past Surgical History: Appendectomy, Orthopedic Surgery Additional Past Surgical History / Comment(s): Right hand fx 7 yrs ago Past Anesthesia/Blood Transfusion Reactions: No Reported Reaction Additional Past Anesthesia/Blood Transfusion Reaction / Comment(s): No transfusion Past Psychological History: No Psychological Hx Reported Smoking Status: Former smoker Past Alcohol Use History: Rare Past Drug Use History: Marijuana - Past Family History Mother Family Medical History: No Reported History General Exam - General Exam Comments Initial Comments: Alert and oriented 29-year-old male. No significant distress. Limitations: no limitations General appearance: alert, in no apparent distress Head exam: Present: atraumatic Eye exam: Present: normal appearance, PERRL, EOMI. Absent: scleral icterus, conjunctival injection, periorbital swelling ENT exam: Present: normal exam, mucous membranes moist Neck exam: Present: normal inspection. Absent: tenderness, meningismus, lymphadenopathy Respiratory exam: Present: normal lung sounds bilaterally. Absent: respiratory distress, wheezes, rales, rhonchi, stridor Cardiovascular Exam: Present: regular rate, normal rhythm, normal heart sounds. Absent: systolic murmur, diastolic murmur, rubs, gallop, clicks GI/Abdominal exam: Present: soft, normal bowel sounds. Absent: distended, tenderness, guarding, rebound, rigid Rectal exam: Present: normal rectal tone, heme (+) stool, bloody stool Extremities exam: Present: normal inspection, full ROM, normal capillary refill. Absent: tenderness, pedal edema, joint swelling, calf tenderness Back exam: Present: normal inspection Neurological exam: Present: alert, oriented X3, CN II-XII intact Psychiatric exam: Present: normal affect, normal mood Skin exam: Present: warm, dry, intact, normal color. Absent: rash Course Vital Signs 09/29/19 09/30/19 22:59 01:49 Temperature 98.1 F 97.9 F Pulse Rate 97 75 Respiratory 16 17 Rate Blood Pressure 137/87 122/72 O2 Sat by Pulse 97 99 Oximetry - Reevaluation(s) Reevaluation #1: 09/30/19 01:59 Patient had bloody appearing mucus stool. Medical Decision Making - Medical Decision Making 29-year-old male presents today with complaints of left-sided abdominal pain for 3 days and was recent bloody mucousy stools. He's had a coloscopy in 2018 which showed some mild changes on the [place] but was not diagnostic for Crohn's or ulce rative colitis. This time patient's labwork was reviewed. White blood cell count 13. Hemoglobin is stable at 14. He did have a bloody stool in emergency department. Computed tomography scan is negative for any acute intra-abdominal abnormality. I discussed the Patient needs follow-up with GI specialty and likely repeat colonoscopy. - Lab Data Result diagrams: 09/29/19 23:54 09/29/19 23:54 Lab Results 09/29/19 09/29/19 09/29/19 Range/Units 23:54 23:54 23:54 WBC 13.9 H (3.8-10.6) k/uL RBC 5.09 (4.30-5.90) m/uL Hgb 14.9 (13.0-17.5) gm/dL Hct 44.9 (39.0-53.0) % MCV 88.3 (80.0-100.0) fL MCH 29.3 (25.0-35.0) pg MCHC 33.2 (31.0-37.0) g/dL RDW 12.4 (11.5-15.5) % Plt Count 390 (150-450) k/uL Neutrophils % 65 % Lymphocytes % 27 % Monocytes % 5 % Eosinophils % 1 % Basophils % 1 % Neutrophils # 9.0 H (1.3-7.7) k/uL Lymphocytes # 3.8 (1.0-4.8) k/uL Monocytes # 0.7 (0-1.0) k/uL Eosinophils # 0.2 (0-0.7) k/uL Basophils # 0.1 (0-0.2) k/uL Sodium 138 (137-145) mmol/L Potassium 4.1 (3.5-5.1) mmol/L Chloride 101 (98-107) mmol/L Carbon Dioxide 27 (22-30) mmol/L Anion Gap 10 mmol/L BUN 22 H (9-20) mg/dL Creatinine 1.05 (0.66-1.25) mg/dL Est GFR (CKD-EPI)AfAm >90 (>60 ml/min/1.73 sqM) Est GFR (CKD-EPI)NonAf >90 (>60 ml/min/1.73 sqM) Glucose 91 (74-99) mg/dL Calcium 10.5 H (8.4-10.2) mg/dL Total Bilirubin 0.4 (0.2-1.3) mg/dL AST 34 (17-59) U/L ALT 33 (4-49) U/L Alkaline Phosphatase 74 (38-126) U/L Total Protein 8.3 H (6.3-8.2) g/dL Albumin 5.0 (3.5-5.0) g/dL Amylase 49 (30-110) U/L Lipase 84 (23-300) U/L Urine Color Colorless Urine Appearance Clear (Clear) Urine pH 5.5 (5.0-8.0) Ur Specific [place] 1.006 (1.001-1.035) Urine Protein Negative (Negative) Urine Glucose (UA) Negative (Negative) Urine Ketones Negative (Negative) Urine Blood Negative (Negative) Urine Nitrite Negative (Negative) Urine Bilirubin Negative (Negative) Urine Urobilinogen <2.0 (<2.0) mg/dL Ur Leukocyte Esterase Negative (Negative) Stool Occult Blood (Negative) 09/29/19 Range/Units 23:54 WBC (3.8-10.6) k/uL RBC (4.30-5.90) m/uL Hgb (13.0-17.5) gm/dL Hct (39.0-53.0) % MCV (80.0-100.0) fL MCH (25.0-35.0) pg MCHC (31.0-37.0) g/dL RDW (11.5-15.5) % Plt Count (150-450) k/uL Neutrophils % % Lymphocytes % % Monocytes % % Eosinophils % % Basophils % % Neutrophils # (1.3-7.7) k/uL Lymphocytes # (1.0-4.8) k/uL Monocytes # (0-1.0) k/uL Eosinophils # (0-0.7) k/uL Basophils # (0-0.2) k/uL Sodium (137-145) mmol/L Potassium (3.5-5.1) mmol/L Chloride (98-107) mmol/L Carbon Dioxide (22-30) mmol/L Anion Gap mmol/L BUN (9-20) mg/dL Creatinine (0.66-1.25) mg/dL Est GFR (CKD-EPI)AfAm (>60 ml/min/1.73 sqM) Est GFR (CKD-EPI)NonAf (>60 ml/min/1.73 sqM) Glucose (74-99) mg/dL Calcium (8.4-10.2) mg/dL Total Bilirubin (0.2-1.3) mg/dL AST (17-59) U/L ALT (4-49) U/L Alkaline Phosphatase (38-126) U/L Total Protein (6.3-8.2) g/dL Albumin (3.5-5.0) g/dL Amylase (30-110) U/L Lipase (23-300) U/L Urine Color Urine Appearance (Clear) Urine pH (5.0-8.0) Ur Specific [place] (1.001-1.035) Urine Protein (Negative) Urine Glucose (UA) (Negative) Urine Ketones (Negative) Urine Blood (Negative) Urine Nitrite (Negative) Urine Bilirubin (Negative) Urine Urobilinogen (<2.0) mg/dL Ur Leukocyte Esterase (Negative) Stool Occult Blood Positive (Negative) - Radiology Data Radiology results: report reviewed Normal computed tomography scan of the abdomen and pelvis. Disposition Clinical Impression: Bloody diarrhea, GERD (gastroesophageal reflux disease) Disposition: HOME SELF-CARE Condition: Good Instructions (If sedation given, give patient instructions): Gastrointestinal Bleeding (ED) Additional Instructions: Patient has evidence clear liquid diet for the next 1-2 days and then advance to the banana, rice, applesauce and toast diet. Take medication as prescribed and advised to have "prompt follow-up with GI specialty. Prescriptions: Amoxic-Pot Clav 875-125Mg [Augmentin 875-125] 1 tab PO BID 5 Days #10 tab Pantoprazole [Protonix] 40 mg PO DAILY #20 tablet.dr Is patient prescribed a controlled substance at d/c from ED?: No Referrals: None,Stated [Primary Care Provider] - 1-2 days Taiwo Hamilton MD [STAFF PHYSICIAN] - 1-2 days Raffi Randhawa [STAFF PHYSICIAN] - 1-2 days Time of Disposition: 02:01
[2019-09-30 00:33] LABS: Basophils # (A) 0.1 k/uL (0-0.2); Basophils % (A) 1 %; Eosinophils # (A) 0.2 k/uL (0-0.7); Eosinophils % (A) 1 %; HCT 44.9 % (39.0-53.0); HGB 14.9 gm/dL (13.0-17.5); Lymphocytes # (A) 3.8 k/uL (1.0-4.8); Lymphocytes % (A) 27 %; MCH 29.3 pg (25.0-35.0); MCHC 33.2 g/dL (31.0-37.0); MCV 88.3 fL (80.0-100.0); Mean Platelet Volume 7.5; Monocytes # (A) 0.7 k/uL (0-1.0); Monocytes % (A) 5 %; Neutrophils % (A) 65 %; Platelet Count 390 k/uL (150-450); RBC 5.09 m/uL (4.30-5.90); RDW 12.4 % (11.5-15.5); WBC 13.9 k/uL (3.8-10.6)
[2019-09-30 00:44] LABS: Appearance,Urine Clear (Clear); Bilirubin,Urine Negative (Negative); Blood,Urine Negative (Negative); Color,Urine Colorless; Glucose,Urine (UA) Negative (Negative); Ketones,Urine Negative (Negative); Leukocyte Esterase,Urine Negative (Negative); Nitrite,Urine Negative (Negative); PH, Urine 5.5 (5.0-8.0); Protein,Urine Negative (Negative); Specific Gravity,Urine 1.006 (1.001-1.035); Urobilinogen,Urine <2.0 mg/dL (<2.0)
[2019-09-30 00:50] LABS: ALT 33 U/L (4-49); AST 34 U/L (17-59); African American GFR (CKD) >90 (>60 ml/min/1.73 sqM); Alkaline Phosphatase 74 U/L (38-126); Amylase 49 U/L (30-110); Anion Gap 10 mmol/L; Blood Urea Nitrogen 22 mg/dL (9-20); Calcium 10.5 mg/dL (8.4-10.2); Carbon Dioxide 27 mmol/L (22-30); Chloride 101 mmol/L (98-107); Glucose 91 mg/dL (74-99); Non-African American GFR(CKD) >90 (>60 ml/min/1.73 sqM); Potassium 4.1 mmol/L (3.5-5.1); Sodium 138 mmol/L (137-145); Total Bilirubin 0.4 mg/dL (0.2-1.3); Total Protein 8.3 g/dL (6.3-8.2)
--- NOTE | 2019-09-30 01:38 | CT ---
EXAMINATION TYPE: CT abdomen pelvis w con DATE OF EXAM: 09/30/2019 COMPARISON: 11/17/2013 HISTORY: LLQ abdominal pain CT DLP: 1586.8 mGycm Automated exposure control for dose reduction was used. CONTRAST: Performed with IV Contrast, patient injected with 100mL mL of Isovue 300. Lung bases are clear. There is no pleural effusion. Heart size is normal. There is no pericardial eff usion. Liver spleen stomach pancreas gallbladder appear normal. Bile ducts are not dilated. There is no adrenal mass. Kidneys show satisfactory contrast opacification. There is no hydronephrosi s. There are clips from appendectomy. There is no retroperitoneal adenopathy. Ureters are not dilated . Bladder distends smoothly. There is no inguinal hernia. There is no free fluid in the pelvis. There is no mesenteric edema. There is no ascites or free air. There is no evidence of bowel obstruct ion. Lumbar spine is intact. Bony pelvis appears intact. IMPRESSION: Normal CT scan of the abdomen and pelvis.
[2019-09-30 01:50] VITALS: BP 122/72; PULSE 75; RESP 17; TEMP 97.9
[2019-09-30] MEDS ORDERED: methylPREDNISolone SOD SUCCI 125 MG/2 ML VIAL IV STA (02:07)
[2019-09-30] MEDS ORDERED: AMOXIC-POT CLAV 875MG STARTER PACK 2 TAB BTL PO STA (02:07)
[2019-09-30] MEDS ORDERED: KETOROLAC 30 MG/ML 1 ML VIAL IVP STA (02:08)
== END 2019-09-30 03:06 | disposition home or self-care (01) ==
LOC: EC 22:50
DX: K21.9 Gastro-esophageal reflux disease without esophagitis (principal); R19.7 Diarrhea, unspecified; Z88.1 Allergy status to other antibiotic agents; Z87.891 Personal history of nicotine dependence
CPT/HCPCS: 36415; 80053; 82150; 83690; 85025; 82272; 81003; 74177; 99284; 96374; 96375 ×2; 96361 ×3; J2930; J2405; C9113; Q9967

== ENCOUNTER 2019-11-14 09:44 | Day surgery (SDC) | payer OTHER ==
[2019-11-14 10:06] VITALS: TEMP 97.9
[2019-11-14] MEDS ORDERED: KETAMINE 10 MG/ML 20 ML VIAL ONE (10:38)
[2019-11-14] MEDS ORDERED: PROPOFOL 10 MG/ML 20 ML VIAL IV ONE (10:38)
[2019-11-14] MEDS ORDERED: LIDOCAINE 1% INJ 10MG/ML (20 ML MDV) ONE (10:38)
[2019-11-14] MEDS ORDERED: GLYCOPYRROLATE 0.2 MG/ML 2 ML VIAL ONE (10:38)
[2019-11-14] MEDS ORDERED: LACTATED RINGERS 1,000 ML IV ONE (10:52)
--- NOTE | 2019-11-14 11:23 | P.PCN ---
Date of Procedure: 11/14/19 Description of Procedure: Brief history: Patient is a pleasant 29-year-old male presenting for EGD and colonoscopy for evaluation of rectal bleeding and gastroesophageal reflux disease. Chronic symptoms of rectal bleeding over the past 2 years with worsening symptoms over the past 3 weeks. Reports abdominal cramping and pain. Previous EGD showed small hiatal hernia and mild gastritis with negative biopsies colonoscopy with random biopsies negative except for TI which did show some ileitis. Procedure performed: Esophagogastroduodenoscopy with biopsy Colonoscopy with biopsy Estimated blood loss: Minimal. Preoperative diagnosis: GERD, rectal bleed Anesthesia: [facility] [place] Procedure: After informed consent was obtained from the patient was brought into the endoscopy unit and IV sedation was administered by anesthesia under continuous monitoring. Initially upper endoscopy was done. The Olympus GF 190 video endoscope was inserted into the mouth and esophagus intubated without any difficulty and was gradually advanced into the stomach and duodenum and carefully examined. The bulb and second part of the duodenum appeared normal, with biopsies taken. The scope was then withdrawn into the stomach adequately insufflated with air and upon careful examination the antrum and body, cardia and fundus appeared normal, except for some mild scattered erythema in the antrum and body suggestive of mild gastritis with biopsies taken. The scope was then withdrawn into the esophagus. The GE junction was located at 40 cm to the incisors, was a 1 cm hiatal hernia noted. Biopsies of the GE junction and esophagus. It appeared regular with no erythema erosions or ulcerations. Rest of the esophagus appeared normal. Patient tolerated the procedure well. At this time the patient continued to remain sedation. Initial digital rectal examination was normal. Olympus CF 190 video colonoscope was then inserted into the rectum and gradually advanced to the cecum without any difficulty. Careful examination was performed as the scope was gradually being withdrawn. The prep was excellent. The cecum, ascending colon, transverse colon, descending colon, sigmoid colon and rectum appeared normal, with biopsies of the right colon, transverse colon and left colon taken. The terminal ileum was intubated with mild erythema and superficial ulcers noted in the distal 5 cm of terminal ileum with mucosal more proximal to this appearing normal with biopsies taken. Retroflexion was performed in the rectum and no lesions were noted, low-grade internal hemorrhoids seen. Patient tolerated the procedure well. Impression: 1. Mild gastritis antrum and body, biopsied. Biopsies of the duodenum, GE junction and mid esophagus taken. Small hiatal hernia. 2. Mild ileitis of the distal 5 cm of terminal ileum with biopsies taken. Otherwise normal-appearing colon from rectum to cecum with biopsies taken of the right colon, transverse colon and left colon. Low-grade internal hemorrhoids. Recommendations: Findings of this examination were discussed with the patient. Okay to resume diet. Okay to resume medications. Await pathology from biopsies. Patient should follow-up in the gastric pathology clinic as scheduled to go over biopsy results.
[2019-11-14 11:27] VITALS: RESP 18
[2019-11-14] MEDS ORDERED: LACTATED RINGERS 1,000 ML IV SCH (11:56)
[2019-11-14 12:05] VITALS: BP 132/67; PULSE 78
== END 2019-11-14 12:13 | disposition home or self-care (01) ==
LOC: ORWHC2ENDO 09:44
PROVIDERS: ATTEND Internal Medicine
DX: K21.0 Gastro-esophageal reflux disease with esophagitis (principal); K44.9 Diaphragmatic hernia without obstruction or gangrene; K29.50 Unspecified chronic gastritis without bleeding; K52.9 Noninfective gastroenteritis and colitis, unspecified; K64.8 Other hemorrhoids; Z88.1 Allergy status to other antibiotic agents; Z79.899 Other long term (current) drug therapy; Z79.1 Long term (current) use of non-steroidal anti-inflammatories (NSAID); Z79.2 Long term (current) use of antibiotics
CPT/HCPCS: 88305; 45380; 43239; J2001; J2704

== ENCOUNTER → 2020-02-06 | Outpatient (CLI) | payer OTHER ==
[2020-02-06 13:19] LABS: Basophils # (A) 0.1 k/uL (0-0.2); Basophils % (A) 1 %; Eosinophils # (A) 0.1 k/uL (0-0.7); Eosinophils % (A) 1 %; HCT 41.9 % (39.0-53.0); HGB 13.9 gm/dL (13.0-17.5); Lymphocytes # (A) 1.7 k/uL (1.0-4.8); Lymphocytes % (A) 17 %; MCH 30.5 pg (25.0-35.0); MCHC 33.1 g/dL (31.0-37.0); MCV 91.9 fL (80.0-100.0); Monocytes # (A) 0.4 k/uL (0-1.0); Monocytes % (A) 5 %; Neutrophils # (A) 7.2 k/uL (1.3-7.7); Neutrophils % (A) 76 %; Platelet Count 337 k/uL (150-450); RBC 4.56 m/uL (4.30-5.90); RDW 12.3 % (11.5-15.5); WBC 9.6 k/uL (3.8-10.6)
[2020-02-06 21:18] LABS: African American GFR (CKD) 106.1 (60.0-200.0); Albumin 4.5 g/dL (3.80-4.90); Albumin/Globulin Ratio 1.96 (1.60-3.17); Anion Gap 9.1 mmol/L (4.00-12.00); Calcium 9.5 mg/dL (8.7-10.3); Carbon Dioxide 26.9 mmol/L (21.6-31.8); Globulin 2.3 g/dL (1.6-3.3); Non-African American GFR(CKD) 91.5 (60.0-200.0); Potassium 4.3 mmol/L (3.5-5.5); Total Bilirubin 0.5 mg/dL (0.3-1.2); Total Protein 6.8 g/dL (6.2-8.2)
[2020-02-07 02:27] LABS: Erythrocyte Sedimentation Rate 20 mm/Hr (0-15)
== END | disposition home or self-care (01) ==
LOC: LABWHC1 11:41
PROVIDERS: ATTEND Nurse Practitioner
DX: K50.00 Crohn's disease of small intestine without complications (principal)
CPT/HCPCS: 36415; 80053; 83993; 85025; 85652; 86140

== ENCOUNTER 2020-06-23 13:55 | Emergency (ER) | payer OTHER ==
--- NOTE | 2020-06-23 14:41 | ED ---
General Adult HPI - General Chief complaint: Upper Respiratory Infection Stated complaint: Back Pain,"wants lungs checked out" Time Seen by Provider: 06/23/20 14:26 Source: patient Mode of arrival: ambulatory Limitations: no limitations - History of Present Illness Initial comments: 30-year-old male presents to emergency Department with chief complaint of back pain. Patient states he has developed upper back pain has been ongoing for the past week. Seems to be exacerbated with motion and whenever a steak and deep breath. Patient does report a nonproductive cough but denies any shortness of breath or chest pain.also reports some sinus congestion and a sore throat. Patient reports in the morning he has to cough multiple times to clear his thro at. He denies history of asthma COPD or smoking. Denies any fevers or chills. Does have history of IBS. denies history of hemoptysis, unilateral leg swelling, recent hospitalizations or surgeries, exogenous hormone use. - Related Data Previous Rx's Medication Instructions Recorded predniSONE 50 mg PO DAILY #5 tab 08/29/18 Allergies Allergy/AdvReac Type Severity Reaction Status Date / Time cefaclor [From [facility]] Allergy Rash/Hives Verified 06/23/20 14:16 Review of Systems ROS Statement: Those systems with pertinent positive or pertinent negative responses have been documented in the HPI. ROS Other: All systems not noted in ROS Statement are negative. Past Medical History Past Medical History: Chest Pain / Angina, GERD/Reflux, GI Bleed Additional Past Medical History / Comment(s): RECENT EC VISIT FOR CP, W/U NL; HAS ECHO 02/03/18, STRESS TEST 02/14/18. HAVING DIARRHEA, SOME BLOOD IN STOOL OCC, ONSET 08/2017 EST, ABD DISCOMFORT. History of Any Multi-Drug Resistant Organisms: None Reported Past Surgical History: Appendectomy, Orthopedic Surgery Additional Past Surgical History / Comment(s): Right hand fx 7 yrs ago Past Anesthesia/Blood Transfusion Reactions: No Reported Reaction Additional Past Anesthesia/Blood Transfusion Reaction / Comment(s): No transfusion Past Psychological History: No Psychological Hx Reported Smoking Status: Former smoker Past Drug Use History: None Reported, Marijuana - Past Family History Mother Family Medical History: CVA/TIA General Exam Limitations: no limitations General appearance: alert, in no apparent distress, obese Head exam: Present: atraumatic, normocephalic, normal inspection Eye exam: Present: normal appearance, PERRL, EOMI Pupils: Present: normal accommodation ENT exam: Present: normal exam, normal oropharynx, mucous membranes moist, TM's normal bilaterally, normal external ear exam Neck exam: Present: normal inspection, full ROM. Absent: tenderness Respiratory exam: Present: normal lung sounds bilaterally. Absent: respiratory distress, wheezes, rales, rhonchi, stridor, chest wall tenderness, accessory muscle use Cardiovascular Exam: Present: regular rate, normal rhythm, normal heart sounds GI/Abdominal exam: Present: soft. Absent: distended, tenderness, guarding, rebound Extremities exam: Present: normal inspection, full ROM, normal capillary refill, other (palpable DP and PT bilaterally.). Absent: tenderness, pedal edema, joint swelling, calf tenderness (negative Homans bilaterally) Back exam: Present: normal inspection, full ROM. Absent: tenderness (no reproducible tenderness to Back), CVA tenderness (R), CVA tenderness (L), muscle spasm, paraspinal tenderness, vertebral tenderness Neurological exam: Present: alert, oriented X3, normal gait Psychiatric exam: Present: normal affect, normal mood Skin exam: Present: warm, dry, intact, normal color Course Vital Signs 06/23/20 14:13 Temperature 98.2 F Pulse Rate 80 Respiratory 18 Rate Blood Pressure 131/91 O2 Sat by Pulse 99 Oximetry EKG Findings - EKG Comments: EKG Findings:: sinus rhythm , inverted T-wave in lead 3. Ventricular rate 70, WA 146, QRS 80, QTC 397. Medical Decision Making - Medical Decision Making 30-year-old male presents to emergency Department with a chief complaint of back pain. on physical examination, slightly reproducible upper back pain. Doesn't have any shortness of breath or chest pain. palpable pedal pulses. Low concern for dissection at this time. Chest x-ray is unremarkable. EKG showing sinus rhythm. Patient is PERC negative. Advised him to follow up with a primary care physician. Return parameters discussed the patient was understanding and agreeable. Case discussed with Dr. Cespedes. Disposition Clinical Impression: Back pain, Cough Disposition: HOME SELF-CARE Condition: Stable Instructions (If sedation given, give patient instructions): Back Pain (ED) Additional Instructions: Alternate between Tylenol and Motrin for pain control. Follow up with her primary care physician. Return to emergency department if symptoms worsen. Is patient prescribed a controlled substance at d/c from ED?: No Referrals: Kuldeep Freire DO [Primary Care Provider] - 1-2 days Taiwo Hamilton MD [STAFF PHYSICIAN] - 1-2 days Time of Disposition: 15:44
--- NOTE | 2020-06-23 15:02 | XR ---
EXAMINATION TYPE: XR chest 2V DATE OF EXAM: 06/23/2020 COMPARISON: 01/26/2018 HISTORY: Chest pain TECHNIQUE: 2 views FINDINGS: Heart and mediastinum are normal. Lungs are clear. Diaphragm is normal. Bony thorax appears normal. IMPRESSION: Normal chest. No change.
[2020-06-23 15:51] VITALS: RESP 16
[2020-06-23 15:54] VITALS: BP 125/85; PULSE 85; TEMP 98
== END 2020-06-23 15:54 | disposition home or self-care (01) ==
LOC: EC 13:55
DX: R05 Cough (principal); M54.6 Pain in thoracic spine; Z88.1 Allergy status to other antibiotic agents; Z90.49 Acquired absence of other specified parts of digestive tract; Z87.891 Personal history of nicotine dependence
CPT/HCPCS: 71046; 93005; 99283

== ENCOUNTER → 2020-12-30 | Outpatient (CLI) | payer OTHER ==
--- NOTE | 2020-12-30 08:01 | CT ---
EXAMINATION TYPE: CT soft tissue neck wo con DATE OF EXAM: 12/30/2020 HISTORY: acid reflux pain extending up into neck and head causing neck, ear, and facial pain COMPARISON: NONE CT DLP: 706.6 mGycm. Automated Exposure Control for Dose Reduction was Utilized. TECHNIQUE: CT scan of the neck is performed without contrast. FINDINGS: Lack of IV contrast is noted to lower radiographic sensitivity for evaluation for subtle mu cosal lesions and neck adenopathy Airway: No gross abnormality seen. Parotid/submandibular glands: No gross abnormality seen. Carotid/Vascular Structures: No suspicious abnormality on noncontrast study Osseous Structures: No suspicious abnormality Other: Some prominent but subcentimeter lymph nodes throughout the neck bilaterally. No greater than 1 cm neck adenopathy. Peripharyngeal fat spaces are maintained bilaterally. IMPRESSION: No suspicious fat stranding or focal fluid collection.
== END | disposition home or self-care (01) ==
LOC: RADCTMAIN 07:25
PROVIDERS: ATTEND Otolaryngology
DX: K21.9 Gastro-esophageal reflux disease without esophagitis (principal); R51.9 Headache, unspecified; M54.2 Cervicalgia
CPT/HCPCS: 70490

== ENCOUNTER 2021-01-15 09:00 | Emergency (ER) | payer OTHER ==
[2021-01-15 09:07] VITALS: BP 128/84; PULSE 68; RESP 18; TEMP 97.6
--- NOTE | 2021-01-15 09:42 | ED ---
General Adult HPI - General Chief complaint: Dental/Oral Stated complaint: tonsil pain/bleeding Time Seen by Provider: 01/15/21 09:11 Source: patient, RN notes reviewed Mode of arrival: ambulatory Limitations: no limitations - History of Present Illness Initial comments: Patient is a pleasant 30-year-old male presenting to the emergency department with concerns regarding tonsil pain and bleeding. Patient states he has been having discomfort for months of his tonsils. Patient states he is seeing ENT twice and had computed tomography scan done. Patient states he has noticed some bleeding intermittently over the past couple of days. Patient believes it is likely to be from his tonsils. Patient exited is unlikely to be from the back of his nose. No dyspnea. Patient tolerating oral intake. No other areas of bleeding. - Related Data Previous Rx's Medication Instructions Recorded predniSONE 50 mg PO DAILY #5 tab 08/29/18 Azithromycin [Zithromax Z-pack (6 250 mg PO DIRECTED #6 tab 01/15/21 tabs)] Allergies Allergy/AdvReac Type Severity Reaction Status Date / Time cefaclor [From Ceclor] Allergy Rash/Hives Verified 01/15/21 09:04 Review of Systems ROS Statement: Those systems with pertinent positive or pertinent negative responses have been documented in the HPI. ROS Other: All systems not noted in ROS Statement are negative. Constitutional: Denies: fever Eyes: Denies: eye pain ENT: Reports: as per HPI, throat pain. Denies: ear pain Respiratory: Denies: cough Cardiovascular: Denies: chest pain Endocrine: Denies: fatigue Gastrointestinal: Denies: abdominal pain Genitourinary: Denies: dysuria Musculoskeletal: Denies: back pain Skin: Denies: rash Neurological: Denies: weakness Past Medical History Past Medical History: Chest Pain / Angina, GERD/Reflux, GI Bleed Additional Past Medical History / Comment(s): RECENT EC VISIT FOR CP, W/U NL; HAS ECHO 02/03/18, STRESS TEST 02/14/18. HAVING DIARRHEA, SOME BLOOD IN STOOL OCC, ONSET 08/2017 EST, ABD DISCOMFORT. History of Any Multi-Drug Resistant Organisms: None Reported Past Surgical History: Appendectomy, Orthopedic Surgery Additional Past Surgical History / Comment(s): Right hand fx 7 yrs ago Past Anesthesia/Blood Transfusion Reactions: No Reported Reaction Additional Past Anesthesia/Blood Transfusion Reaction / Comment(s): No transfusion Past Psychological History: No Psychological Hx Reported Smoking Status: Former smoker Past Alcohol Use History: None Reported Past Drug Use History: Marijuana - Past Family History Mother Family Medical History: CVA/TIA General Exam Limitations: no limitations General appearance: alert, in no apparent distress Head exam: Present: normocephalic Eye exam: Present: normal appearance ENT exam: Present: other (Mild to moderate prominence of the tonsils. No bleeding. No clots. No trismus. Nares without bleeding) Neck exam: Present: normal inspection. Absent: tenderness, meningismus, lymphadenopathy Respiratory exam: Present: normal lung sounds bilaterally Cardiovascular Exam: Present: regular rate, normal rhythm Neurological exam: Present: alert Psychiatric exam: Present: normal affect, normal mood Skin exam: Present: normal color Course Vital Signs 01/15/21 09:05 Temperature 97.6 F Pulse Rate 68 Respiratory 18 Rate Blood Pressure 128/84 O2 Sat by Pulse 98 Oximetry Disposition Clinical Impression: Tonsillitis Disposition: HOME SELF-CARE Condition: Stable Instructions (If sedation given, give patient instructions): Tonsillitis (ED) Additional Instructions: Prescription for antibiotics has been sent to pharmacy. Please do follow-up with primary care physician in the next day or 2 for recheck. Please also follow-up with ENT. Consider scope of the area. Return for fever, bleeding, increased pain, not tolerating oral intake, difficulty breathing, worsening symptoms or other concerns. Prescriptions: Azithromycin [Zithromax Z-pack (6 tabs)] 250 mg PO DIRECTED #6 tab Is patient prescribed a controlled substance at d/c from ED?: No Referrals: Kuldeep Freire DO [Primary Care Provider] - 1-2 days Luis Burgos DO [Doctor of Osteopathic Medicine] - 1-2 days Time of Disposition: 09:41
== END 2021-01-15 10:02 | disposition home or self-care (01) ==
LOC: EC 09:00
DX: J03.90 Acute tonsillitis, unspecified (principal); Z87.891 Personal history of nicotine dependence; Z88.1 Allergy status to other antibiotic agents
CPT/HCPCS: 99282

== ENCOUNTER 2021-04-09 07:06 | Emergency (ER) | payer OTHER ==
[2021-04-09 07:16] VITALS: RESP 18; TEMP 98.2
[2021-04-09] MEDS ORDERED: MORPHINE SULFATE 4 MG/ML SYRINGE IV STA (07:27)
[2021-04-09] MEDS ORDERED: SODIUM CHLORIDE 0.9% 1,000 ML IV STA (07:27)
[2021-04-09 08:31] LABS: ALT 32 U/L (4-49); African American GFR (CKD) >90 (>60 ml/min/1.73 sqM); Amylase 52 U/L (30-110); Anion Gap 13 mmol/L; Blood Urea Nitrogen 18 mg/dL (9-20); Calcium 10.2 mg/dL (8.4-10.2); Carbon Dioxide 24 mmol/L (22-30); Chloride 99 mmol/L (98-107); Glucose 137 mg/dL (74-99); Lipase 60 U/L (23-300); Non-African American GFR(CKD) >90 (>60 ml/min/1.73 sqM); Sodium 136 mmol/L (137-145)
[2021-04-09 08:38] LABS: Potassium 4.6 mmol/L (3.5-5.1)
[2021-04-09 08:39] LABS: AST 38 U/L (17-59); Albumin 4.9 g/dL (3.5-5.0); Alkaline Phosphatase 58 U/L (38-126); Total Protein 8.6 g/dL (6.3-8.2)
[2021-04-09 09:17] LABS: Amorphous Sediment,Urine Rare /hpf; Appearance,Urine Cloudy (Clear); Bilirubin,Urine 1+ (Negative); Blood,Urine Negative (Negative); Color,Urine Yellow; Glucose,Urine (UA) Negative (Negative); Hyaline Casts,Urine 1 /lpf (0-2); Ketones,Urine 3+ (Negative); Leukocyte Esterase,Urine Negative (Negative); Mucus,Urine Many /hpf; Nitrite,Urine Negative (Negative); Protein,Urine 1+ (Negative); RBC,Urine 1 /hpf (0-5); Specific Gravity,Urine 1.028 (1.001-1.035); Squamous Epithelial Cell,Urine <1 /hpf (0-4); WBC,Urine 2 /hpf (0-5)
[2021-04-09 09:31] LABS: Basophils # (A) 0.1 k/uL (0-0.2); Basophils % (A) 1 %; Eosinophils # (A) 0.1 k/uL (0-0.7); Eosinophils % (A) 1 %; HCT 46.1 % (39.0-53.0); HGB 15.9 gm/dL (13.0-17.5); Lymphocytes # (A) 2.2 k/uL (1.0-4.8); Lymphocytes % (A) 23 %; MCH 30.6 pg (25.0-35.0); MCHC 34.4 g/dL (31.0-37.0); MCV 89.1 fL (80.0-100.0); Monocytes # (A) 0.5 k/uL (0-1.0); Monocytes % (A) 6 %; Neutrophils # (A) 6.8 k/uL (1.3-7.7); Neutrophils % (A) 69 %; Platelet Count 366 k/uL (150-450); RBC 5.18 m/uL (4.30-5.90); RDW 11.7 % (11.5-15.5); WBC 9.9 k/uL (3.8-10.6)
--- NOTE | 2021-04-09 09:58 | ED ---
Abdominal Pain HPI - General Chief Complaint: Abdominal Pain Stated Complaint: Abd Pain Time Seen by Provider: 04/09/21 07:27 Source: patient, RN notes reviewed Mode of arrival: ambulatory Limitations: no limitations - History of Present Illness Initial Comments: Patient is a 30-year-old male that presents to the emergency department complaining of left-sided lower rib upper abdominal flank pain. He notes he recently got his appendix out about a week ago. He notes he was researching online and stated that eating oats is good for spleen pain. Patient notes that he can emergency room to get a scan to make sure they will good. Patient notes that he's pain was a very mild and was tolerable and denied any pain medication this time. He notes that the pain comes and goes. He denied any aggravating factors. He was otherwise well-appearing. He does have a history of heartburn and GI bleed. Patient denied any chest pain shortness of breath headache nausea vomiting diarrhea constipation fever fatigue chills. - Related Data Home Medications Medication Instructions Recorded Confirmed Acetaminophen Tab [Tylenol Tab] 1,000 mg PO Q6HR PRN 04/09/21 04/09/21 oxyCODONE HCL [OxyIR] 5 mg PO Q6H PRN 04/09/21 04/09/21 Allergies Allergy/AdvReac Type Severity Reaction Status Date / Time cefaclor [From [facility]] Allergy Rash/Hives Verified 04/09/21 09:51 Review of Systems ROS Statement: Those systems with pertinent positive or pertinent negative responses have been documented in the HPI. ROS Other: All systems not noted in ROS Statement are negative. Past Medical History Past Medical History: Chest Pain / Angina, GERD/Reflux, GI Bleed Additional Past Medical History / Comment(s): RECENT EC VISIT FOR CP, W/U NL; HAS ECHO 02/03/18, STRESS TEST 02/14/18. HAVING DIARRHEA, SOME BLOOD IN STOOL OCC, ONSET 08/2017 EST, ABD DISCOMFORT. History of Any Multi-Drug Resistant Organisms: None Reported Past Surgical History: Appendectomy, Orthopedic Surgery, Tonsillectomy Additional Past Surgical History / Comment(s): Right hand fx 7 yrs ago Past Anesthesia/Blood Transfusion Reactions: No Reported Reaction Additional Past Anesthesia/Blood Transfusion Reaction / Comment(s): No transfusion Past Psychological History: No Psychological Hx Reported Smoking Status: Former smoker Past Alcohol Use History: None Reported Past Drug Use History: Marijuana - Past Family History Mother Family Medical History: CVA/TIA General Exam Limitations: no limitations General appearance: alert, in no apparent distress, obese Head exam: Present: atraumatic, normocephalic, normal inspection Eye exam: Present: normal appearance, PERRL, EOMI. Absent: scleral icterus, conjunctival injection, periorbital swelling ENT exam: Present: normal exam, mucous membranes moist Neck exam: Present: normal inspection Respiratory exam: Present: normal lung sounds bilaterally. Absent: respiratory distress, wheezes, rales, rhonchi, stridor Cardiovascular Exam: Present: regular rate, normal rhythm, normal heart sounds. Absent: systolic murmur, diastolic murmur, rubs, gallop, clicks GI/Abdominal exam: Present: soft, normal bowel sounds. Absent: distended, tenderness, guarding, rebound, rigid Extremities exam: Present: normal inspection, full ROM, normal capillary refill. Absent: tenderness, pedal edema, joint swelling, calf tenderness Neurological exam: Present: alert, oriented X3 Psychiatric exam: Present: normal affect, normal mood Skin exam: Present: warm, dry, intact, normal color. Absent: rash Course Vital Signs 04/09/21 07:11 Temperature 98.2 F Pulse Rate 90 Respiratory 18 Rate Blood Pressure 129/89 O2 Sat by Pulse 97 Oximetry Medical Decision Making - Medical Decision Making 30-year-old male with left upper abdominal pain. Labs, CT of the abdomen and pelvis, 1 L normal saline, 4 mg of morphine ordered. Labs are unremarkable from baseline. CT negative for any acute process: Postop changes possible hepatic steatosis. History discussed with Dr. Thompson, patient discharge home with follow-up to GI specialist. Patient is agreeable with discharge home. - Lab Data Result diagrams: 04/09/21 07:54 04/09/21 07:54 Lab Results 04/09/21 04/09/21 04/09/21 Range/Units 07:54 07:54 07:54 WBC 9.9 (3.8-10.6) k/uL RBC 5.18 (4.30-5.90) m/uL Hgb 15.9 (13.0-17.5) gm/dL Hct 46.1 (39.0-53.0) % MCV 89.1 (80.0-100.0) fL MCH 30.6 (25.0-35.0) pg MCHC 34.4 (31.0-37.0) g/dL RDW 11.7 (11.5-15.5) % Plt Count 366 (150-450) k/uL MPV 8.0 Neutrophils % 69 % Lymphocytes % 23 % Monocytes % 6 % Eosinophils % 1 % Basophils % 1 % Neutrophils # 6.8 (1.3-7.7) k/uL Lymphocytes # 2.2 (1.0-4.8) k/uL Monocytes # 0.5 (0-1.0) k/uL Eosinophils # 0.1 (0-0.7) k/uL Basophils # 0.1 (0-0.2) k/uL Sodium 136 L (137-145) mmol/L Potassium 4.6 (3.5-5.1) mmol/L Chloride 99 (98-107) mmol/L Carbon Dioxide 24 (22-30) mmol/L Anion Gap 13 mmol/L BUN 18 (9-20) mg/dL Creatinine 0.98 (0.66-1.25) mg/dL Est GFR (CKD-EPI)AfAm >90 (>60 ml/min/1.73 sqM) Est GFR (CKD-EPI)NonAf >90 (>60 ml/min/1.73 sqM) Glucose 137 H (74-99) mg/dL Plasma Lactic Acid Shaun 1.2 (0.7-2.0) mmol/L Calcium 10.2 (8.4-10.2) mg/dL Total Bilirubin 1.0 (0.2-1.3) mg/dL AST 38 (17-59) U/L ALT 32 (4-49) U/L Alkaline Phosphatase 58 (38-126) U/L Total Protein 8.6 H (6.3-8.2) g/dL Albumin 4.9 (3.5-5.0) g/dL Amylase 52 (30-110) U/L Lipase 60 (23-300) U/L Urine Color Urine Appearance (Clear) Urine pH (5.0-8.0) Ur Specific [place] (1.001-1.035) Urine Protein (Negative) Urine Glucose (UA) (Negative) Urine Ketones (Negative) Urine Blood (Negative) Urine Nitrite (Negative) Urine Bilirubin (Negative) Urine Urobilinogen (<2.0) mg/dL Ur Leukocyte Esterase (Negative) Urine RBC (0-5) /hpf Urine WBC (0-5) /hpf Ur Squamous Epith Cells (0-4) /hpf Amorphous Sediment (None) /hpf Hyaline Casts (0-2) /lpf Urine Mucus (None) /hpf 04/09/21 Range/Units 08:29 WBC (3.8-10.6) k/uL RBC (4.30-5.90) m/uL Hgb (13.0-17.5) gm/dL Hct (39.0-53.0) % MCV (80.0-100.0) fL MCH (25.0-35.0) pg MCHC (31.0-37.0) g/dL RDW (11.5-15.5) % Plt Count (150-450) k/uL MPV Neutrophils % % Lymphocytes % % Monocytes % % Eosinophils % % Basophils % % Neutrophils # (1.3-7.7) k/uL Lymphocytes # (1.0-4.8) k/uL Monocytes # (0-1.0) k/uL Eosinophils # (0-0.7) k/uL Basophils # (0-0.2) k/uL Sodium (137-145) mmol/L Potassium (3.5-5.1) mmol/L Chloride (98-107) mmol/L Carbon Dioxide (22-30) mmol/L Anion Gap mmol/L BUN (9-20) mg/dL Creatinine (0.66-1.25) mg/dL Est GFR (CKD-EPI)AfAm (>60 ml/min/1.73 sqM) Est GFR (CKD-EPI)NonAf (>60 ml/min/1.73 sqM) Glucose (74-99) mg/dL Plasma Lactic Acid Shaun (0.7-2.0) mmol/L Calcium (8.4-10.2) mg/dL Total Bilirubin (0.2-1.3) mg/dL AST (17-59) U/L ALT (4-49) U/L Alkaline Phosphatase (38-126) U/L Total Protein (6.3-8.2) g/dL Albumin (3.5-5.0) g/dL Amylase (30-110) U/L Lipase (23-300) U/L Urine Color Yellow Urine Appearance Cloudy (Clear) Urine pH 6.0 (5.0-8.0) Ur Specific [place] 1.028 (1.001-1.035) Urine Protein 1+ H (Negative) Urine Glucose (UA) Negative (Negative) Urine Ketones 3+ H (Negative) Urine Blood Negative (Negative) Urine Nitrite Negative (Negative) Urine Bilirubin 1+ H (Negative) Urine Urobilinogen 3.0 (<2.0) mg/dL Ur Leukocyte Esterase Negative (Negative) Urine RBC 1 (0-5) /hpf Urine WBC 2 (0-5) /hpf Ur Squamous Epith Cells <1 (0-4) /hpf Amorphous Sediment Rare H (None) /hpf Hyaline Casts 1 (0-2) /lpf Urine Mucus Many H (None) /hpf - Radiology Data Radiology results: report reviewed, image reviewed CT of the abdomen and pelvis: Postop changes. Correlate for hepatic state doses. Disposition Clinical Impression: Abdominal pain Disposition: HOME SELF-CARE Condition: Stable Instructions (If sedation given, give patient instructions): Abdominal Pain (ED) Additional Instructions: Please return to the Emergency Department if symptoms worsen or any other concerns. Is patient prescribed a controlled substance at d/c from ED?: No Referrals: Kuldeep Freire DO [Primary Care Provider] - 1-2 days Galina Banegas MD [STAFF PHYSICIAN] - 1-2 days Time of Disposition: 10:13
--- NOTE | 2021-04-09 10:04 | CT ---
EXAMINATION TYPE: CT abdomen pelvis w con DATE OF EXAM: 04/09/2021 COMPARISON: CT 09/30/2019 HISTORY: Abdominal pain CT DLP: 1363.2 mGycm Automated exposure control for dose reduction was used. TECHNIQUE: Helical acquisition of images from the lung bases through the pelvis have been completed. CONTRAST: Performed without Oral Contrast and with IV Contrast, patient injected with 100 mL of Isovue 300. FINDINGS: LUNG BASES: No significant abnormality is appreciated. AORTA: No significant abnormality is appreciated. LIVER/GB: Liver shows low attenuation possibly due to hepatic steatosis, gallbladder is normal PANCREAS: No significant abnormality is seen. SPLEEN: No significant abnormality is seen. ADRENALS: No significant abnormality is seen. KIDNEYS: No significant abnormality is seen. REPRODUCTIVE ORGANS: No significant abnormality is seen BOWEL: Suspect the patient is post appendectomy, surgical clips present in the right lower quadrant FREE AIR: No Free Air visible. ASCITES: None visible. PELVIC ADENOPATHY: None visualized. RETROPERITONEAL ADENOPATHY: No Retroperitoneal Adenopathy visible. URINARY BLADDER: Contracted OSSEOUS STRUCTURES: There is a mild spinal curvature could be positional. IMPRESSION: POSTOP CHANGES. CORRELATE FOR HEPATIC STEATOSIS.
[2021-04-09 10:42] VITALS: BP 121/88; PULSE 84
== END 2021-04-09 10:42 | disposition home or self-care (01) ==
LOC: EC 07:06
DX: R10.12 Left upper quadrant pain (principal); K21.9 Gastro-esophageal reflux disease without esophagitis; F12.90 Cannabis use, unspecified, uncomplicated; Z88.1 Allergy status to other antibiotic agents; Z90.49 Acquired absence of other specified parts of digestive tract; Z87.891 Personal history of nicotine dependence
CPT/HCPCS: 99284; 96360; 96361; 36415; 80053; 82150; 83605; 83690; 85025; 81001; 74177; Q9967

== ENCOUNTER 2021-08-27 14:42 | Emergency (ER) | payer OTHER ==
[2021-08-27 15:59] VITALS: TEMP 98
[2021-08-27 17:55] LABS: Basophils # (A) 0.1 k/uL (0-0.2); Basophils % (A) 1 %; Eosinophils # (A) 0.2 k/uL (0-0.7); Eosinophils % (A) 2 %; HGB 16.1 gm/dL (13.0-17.5); Lymphocytes # (A) 2.3 k/uL (1.0-4.8); Lymphocytes % (A) 22 %; MCH 30.7 pg (25.0-35.0); MCHC 34.2 g/dL (31.0-37.0); MCV 89.7 fL (80.0-100.0); Mean Platelet Volume 7.4; Monocytes # (A) 0.4 k/uL (0-1.0); Monocytes % (A) 4 %; Neutrophils # (A) 7.8 k/uL (1.3-7.7); Neutrophils % (A) 72 %; Platelet Count 437 k/uL (150-450); RBC 5.24 m/uL (4.30-5.90); RDW 12.8 % (11.5-15.5); WBC 10.9 k/uL (3.8-10.6)
[2021-08-27 18:00] LABS: ALT 43 U/L (4-49); AST 30 U/L (17-59); African American GFR (CKD) >90 (>60 ml/min/1.73 sqM); Albumin 4.9 g/dL (3.5-5.0); Alkaline Phosphatase 63 U/L (38-126); Anion Gap 9 mmol/L; Blood Urea Nitrogen 21 mg/dL (9-20); Calcium 10.1 mg/dL (8.4-10.2); Carbon Dioxide 28 mmol/L (22-30); Chloride 104 mmol/L (98-107); Glucose 104 mg/dL (74-99); Non-African American GFR(CKD) >90 (>60 ml/min/1.73 sqM); Potassium 4.1 mmol/L (3.5-5.1); Sodium 141 mmol/L (137-145); Total Bilirubin 0.6 mg/dL (0.2-1.3); Total Protein 8.4 g/dL (6.3-8.2)
--- NOTE | 2021-08-27 18:23 | CT ---
EXAMINATION TYPE: CT soft tissue neck wo con DATE OF EXAM: 08/27/2021 COMPARISON: 12/30/2020 HISTORY: Throat pain x couple months. CT DLP: 608 mGycm Automated exposure control for dose reduction was used. Images obtained from the aortic arch to the sphenoid sinus without contrast. Superior mediastinum is intact. Thyroid gland is intact. The submandibular salivary glands are intact . Parotid glands are intact. Prevertebral soft tissues appear normal. No evidence of retropharyngeal mass. Cervical spine appears intact. Epiglottis appears normal. Subglottic trachea appears normal. Tongue appears normal. The tonsils and adenoids are within normal limits. IMPRESSION: Negative CT scan of the neck. No adverse change compared to old exam.
--- NOTE | 2021-08-27 18:47 | ED ---
General Adult HPI - General Chief complaint: ENT Stated complaint: coughing up blood Time Seen by Provider: 08/27/21 16:05 Source: patient Limitations: no limitations - History of Present Illness Initial comments: This 31-year-old male presents to the emergency Department with episodic throat pain 2 months. She states he has tonsils removed in April and has had episodic throat pain since getting his tonsils removed. He states he is unable to see an ear nose and throat doctor for another one and half months and states he is scared that he has throat cancer. Patient states he occasionally coughs up mucus with a little bit of strands of blood present, however he denies any blood clots. Patient states last month his throat pain didn't radiate upwards towards his jaw but states that hasn't happened since. Patient states he has tried to chew on garlic and bren for pain relief which does seem to help. He describes his pain as aching and states it comes and goes. Patient denies any fever, trouble breathing, trouble swallowing, coughing, chest pain, shortness of breath, abdominal pain, nausea, vomiting, change in bowel or bladder, change in appetite, change in vision, lightheadedness, dizziness, ear pain, tongue pain, tooth pain. - Related Data Home Medications Medication Instructions Recorded Confirmed Acetaminophen Tab [Tylenol Tab] 1,000 mg PO Q6HR PRN 04/09/21 08/27/21 Dextroamphetamine/Amphetamine 10 mg PO DAILY 08/27/21 08/27/21 [Dextroamphetamine/Amphetamine ER 10 mg Cap] Allergies Allergy/AdvReac Type Severity Reaction Status Date / Time cefaclor [From [facility]] Allergy Rash/Hives Verified 08/27/21 18:04 Review of Systems ROS Statement: Those systems with pertinent positive or pertinent negative responses have been documented in the HPI. ROS Other: All systems not noted in ROS Statement are negative. Past Medical History Past Medical History: Chest Pain / Angina, GERD/Reflux, GI Bleed Additional Past Medical History / Comment(s): RECENT EC VISIT FOR CP, W/U NL; HAS ECHO 02/03/18, STRESS TEST 02/14/18. HAVING DIARRHEA, SOME BLOOD IN STOOL OCC, ONSET 08/2017 EST, ABD DISCOMFORT. History of Any Multi-Drug Resistant Organisms: None Reported Past Surgical History: Appendectomy, Orthopedic Surgery, Tonsillectomy Additional Past Surgical History / Comment(s): Right hand fx 7 yrs ago Past Anesthesia/Blood Transfusion Reactions: No Reported Reaction Additional Past Anesthesia/Blood Transfusion Reaction / Comment(s): No transfusion Past Psychological History: No Psychological Hx Reported Smoking Status: Former smoker Past Alcohol Use History: None Reported Past Drug Use History: Marijuana - Past Family History Mother Family Medical History: CVA/TIA General Exam Limitations: no limitations General appearance: alert, in no apparent distress Head exam: Present: atraumatic, normocephalic, normal inspection Eye exam: Present: normal appearance, PERRL, EOMI, other (Uvula midline. No tonsils present. No abscesses, erythema, growths, drainage visualized.). Absent: scleral icterus, conjunctival injection, periorbital swelling, periorbital tenderness Pupils: Present: normal accommodation ENT exam: Present: normal exam, normal oropharynx, mucous membranes moist, TM's normal bilaterally, normal external ear exam Neck exam: Present: normal inspection, full ROM. Absent: tenderness, meningismus, lymphadenopathy Respiratory exam: Present: normal lung sounds bilaterally. Absent: respiratory distress, wheezes, rales, rhonchi, stridor, chest wall tenderness, decreased breath sounds Cardiovascular Exam: Present: regular rate, normal rhythm, normal heart sounds. Absent: systolic murmur, diastolic murmur, rubs, gallop, clicks GI/Abdominal exam: Present: soft, normal bowel sounds. Absent: distended, tenderness, guarding, rebound, rigid Extremities exam: Present: normal inspection, full ROM, normal capillary refill. Absent: tenderness, pedal edema, joint swelling, calf tenderness Back exam: Present: normal inspection, full ROM. Absent: CVA tenderness (R), CVA tenderness (L), paraspinal tenderness, vertebral tenderness Neurological exam: Present: alert, oriented X3, CN II-XII intact, normal gait Psychiatric exam: Present: normal affect, normal mood, anxious Skin exam: Present: warm, dry, intact, normal color. Absent: rash Course Vital Signs 08/27/21 15:52 Temperature 98.0 F Pulse Rate 78 Respiratory 18 Rate Blood Pressure 130/76 O2 Sat by Pulse 95 Oximetry Medical Decision Making - Medical Decision Making This 31-year-old male presents emergency Department with throat pain 2 months. Vital signs unremarkable. Physical exam unremarkable. Labs without any acute abnormalities. Patient did refuse rapid strep and COVID-19/influenza A/B swabs. ENT follow-up given to the patient instructed to follow up as soon as possible. Patient instructed to follow-up with his primary care provider in next 1-2 da ys. Strict return precautions were discussed. Patient verbally agreed to plan. Patient sent home in stable condition. Case discussed in detail my attending, Dr. Knowles. - Lab Data Result diagrams: 08/27/21 17:43 08/27/21 17:43 Lab Results 08/27/21 08/27/21 Range/Units 17:43 17:43 WBC 10.9 H (3.8-10.6) k/uL RBC 5.24 (4.30-5.90) m/uL Hgb 16.1 (13.0-17.5) gm/dL Hct 47.0 (39.0-53.0) % MCV 89.7 (80.0-100.0) fL MCH 30.7 (25.0-35.0) pg MCHC 34.2 (31.0-37.0) g/dL RDW 12.8 (11.5-15.5) % Plt Count 437 (150-450) k/uL MPV 7.4 Neutrophils % 72 % Lymphocytes % 22 % Monocytes % 4 % Eosinophils % 2 % Basophils % 1 % Neutrophils # 7.8 H (1.3-7.7) k/uL Lymphocytes # 2.3 (1.0-4.8) k/uL Monocytes # 0.4 (0-1.0) k/uL Eosinophils # 0.2 (0-0.7) k/uL Basophils # 0.1 (0-0.2) k/uL Sodium 141 (137-145) mmol/L Potassium 4.1 (3.5-5.1) mmol/L Chloride 104 (98-107) mmol/L Carbon Dioxide 28 (22-30) mmol/L Anion Gap 9 mmol/L BUN 21 H (9-20) mg/dL Creatinine 1.04 (0.66-1.25) mg/dL Est GFR (CKD-EPI)AfAm >90 (>60 ml/min/1.73 sqM) Est GFR (CKD-EPI)NonAf >90 (>60 ml/min/1.73 sqM) Glucose 104 H (74-99) mg/dL Calcium 10.1 (8.4-10.2) mg/dL Total Bilirubin 0.6 (0.2-1.3) mg/dL AST 30 (17-59) U/L ALT 43 (4-49) U/L Alkaline Phosphatase 63 (38-126) U/L Total Protein 8.4 H (6.3-8.2) g/dL Albumin 4.9 (3.5-5.0) g/dL TSH 0.851 (0.465-4.680) mIU/L Disposition Clinical Impression: Throat pain in adult Disposition: HOME SELF-CARE Condition: Stable Instructions (If sedation given, give patient instructions): Pharyngitis (ED) Additional Instructions: Please follow-up with ENT as soon as possible. Follow-up with primary care provider in next 1-2 days. Return to the emergency department with any new, worsening, or concerning symptoms. Is patient prescribed a controlled substance at d/c from ED?: No Referrals: Tami Montelongo MD [Medical Doctor] - 1-2 days Luis Burgos DO [Doctor of Osteopathic Medicine] - 1-2 days Kuldeep Freire DO [Primary Care Provider] - 1-2 days Frank Hogan MD [STAFF PHYSICIAN] - 1-2 days Xu Cabrera MD [STAFF PHYSICIAN] - 1-2 days Time of Disposition: 18:51
[2021-08-27 19:02] VITALS: BP 124/79; PULSE 95; RESP 16
== END 2021-08-27 19:02 | disposition home or self-care (01) ==
LOC: EC 14:42
DX: R07.0 Pain in throat (principal); F12.90 Cannabis use, unspecified, uncomplicated; Z87.891 Personal history of nicotine dependence
CPT/HCPCS: 36415; 70490; 80053; 84443; 85025; 99284

== ENCOUNTER 2022-11-08 16:20 | Emergency (ER) | payer OTHER ==
[2022-11-08 16:34] VITALS: BP 121/85; PULSE 96; RESP 18; TEMP 98.6
[2022-11-08] MEDS ORDERED: ACETAMINOPHEN TAB 325 MG TAB PO STA (17:32)
[2022-11-08] MEDS ORDERED: SODIUM CHLORIDE 0.9% 1,000 ML IV ONE (17:32)
--- NOTE | 2022-11-08 17:41 | ED ---
General Adult HPI - General Chief complaint: Headache Stated complaint: Dizziness,pressure back of head Time Seen by Provider: 11/08/22 17:08 Source: patient, RN notes reviewed Mode of arrival: ambulatory Limitations: no limitations - History of Present Illness Initial comments: 32-year-old male with no significant past medical history presents to the department the chief complaint of headache. He localizes the headache in his occipital region. She reports that it has been happening for 4 days and sharp and constant. He has not taken anything for his symptoms. He denies any coming symptoms of nausea, vomiting, fall. Denies any dizziness. ). - Related Data Home Medications Medication Instructions Recorded Confirmed Acetaminophen Tab [Tylenol Tab] 1,000 mg PO Q6HR PRN 04/09/21 08/27/21 Dextroamphetamine/Amphetamine 10 mg PO DAILY 08/27/21 08/27/21 [Dextroamphetamine/Amphetamine ER 10 mg Cap] Allergies Allergy/AdvReac Type Severity Reaction Status Date / Time [facility] Allergy Rash/Hives Verified 11/08/22 16:33 Review of Systems ROS Statement: Those systems with pertinent positive or pertinent negative responses have been documented in the HPI. ROS Other: All systems not noted in ROS Statement are negative. Past Medical History Past Medical History: Chest Pain / Angina, GERD/Reflux, GI Bleed Additional Past Medical History / Comment(s): RECENT EC VISIT FOR CP, W/U NL; HAS ECHO 02/03/18, STRESS TEST 02/14/18. HAVING DIARRHEA, SOME BLOOD IN STOOL OCC, ONSET 08/2017 EST, ABD DISCOMFORT. History of Any Multi-Drug Resistant Organisms: None Reported Past Surgical History: Appendectomy, Orthopedic Surgery, Tonsillectomy Additional Past Surgical History / Comment(s): Right hand fx 7 yrs ago Past Anesthesia/Blood Transfusion Reactions: No Reported Reaction Additional Past Anesthesia/Blood Transfusion Reaction / Comment(s): No transfusion Past Psychological History: No Psychological Hx Reported Smoking Status: Former smoker Past Alcohol Use History: Rare Past Drug Use History: Marijuana - Past Family History Mother Family Medical History: CVA/TIA General Exam - General Exam Comments Initial Comments: General: Alert, in no acute distress Head: atraumatic normocephalic. Eyes PERRL, EOMI intact, mucous membranes moist Respiratory: Lungs clear to auscultation bilaterally Cardiovascular: Heart rate regular rate and rhythm Abdominal: Soft without guarding or rebound Extremities: Normal inspection with full range of motion and normal capillary refill Neuroogic: alert and oriented 3, CN II-XII intact, able to ambulate with steady gait Skin: warm dry and intact with normal color Limitations: no limitations Course Vital Signs 11/08/22 16:30 Temperature 98.6 F Pulse Rate 96 Respiratory 18 Rate Blood Pressure 121/85 O2 Sat by Pulse 98 Oximetry Medical Decision Making - Medical Decision Making Was pt. sent in by a medical professional or institution (, [facility], BEER MAKER, urgent care, hospital, or mcc...) When possible be specific @ -[No] Did you speak to anyone other than the patient for history (EMS, parent, family, police, friend...)? What history was obtained from this source @ -[No] Did you review nursing and triage notes (agree or disagree)? Why? @ -[I reviewed and agree with nursing and triage notes] Were old charts reviewed (outside hosp., previous admission, EMS record, old EKG, old radiological studies, urgent care reports/EKG's, mcc records)? Report findings @ -[No old charts were reviewed] Differential Diagnosis (chest pain, altered mental status, abdominal pain women, abdominal pain men, vaginal bleeding, weakness, fever, dyspnea, syncope, headache, dizziness, GI bleed, back pain, seizure, CVA, palpatations, mental health, musculoskeletal)? @ -[not applicable] EKG interpreted by me (3pts min.). @ -[As above] X-rays interpreted by me (1pt min.). @ -[None done] CT interpreted by me (1pt min.). @ T negative for any evidence of intracranial process U/S interpreted by me (1pt. min.). @ -[None done] What testing was considered but not performed or refused? (CT, X-rays, U/S, labs)? Why? @ -[None] What meds were considered but not given or refused? Why? @ -[None] Did you discuss the management of the patient with other professionals (professionals i.e. KALEY Pozo, BEER MAKER, lab, RT, psych nurse, clinical social work aide, retail salesworker, teacher, water resources technical officer, disease case manager)? Give summary @ -[No] Was smoking cessation discussed for >3mins.? @ -[No] Was critical care preformed (if so, how long)? @ -[No] Were there social determinants of health that impacted care today? How? (Homelessness, low income, unemployed, alcoholism, drug addiction, transportation, low edu. Level, literacy, decrease access to med. care, halfway, rehab)? @ -[No] Was there de-escalation of care discussed even if they declined (Discuss DNR or withdrawal of care, Hospice)? DNR status @ -[No] What co-morbidities impacted this encounter? (DM, HTN, Smoking, COPD, CAD, Cancer, CVA, ARF, Chemo, Hep., AIDS, mental health diagnosis, sleep apnea, morbid obesity)? @ -[None] Was patient admitted / discharged? Hospital course, mention meds given and route, prescriptions, significant lab abnormalities, going to OR and other pertinent info. @ -Discharged. This is a pleasant 32-year-old male who presents to the emergency department with headache. Patient had thorough history and phy sical exam performed on the ED. Physical exam is essentially unremarkable. Patient able to move all extremities freely. No focal neuro deficits Patient had imaging performed in the ED which was essentially negative. I discussed the results in detail with the patient verbalized understanding and all questions were addressed. Return precautions were discussed at length. Patient was discharged home in stable condition. With recommend close follow-up in 1-2 days with PCP. I discussed the case with RAEGAN Freire who agrees with plan of care Undiagnosed new problem with uncertain prognosis? @ -[No] Drug Therapy requiring intensive monitoring for toxicity (Heparin, Nitro, Insulin, Cardizem)? @ -[No] Were any procedures done? @ -[No] Diagnosis/symptom? @ -Headache Acute, or Chronic, or Acute on Chronic? @ -Acute Uncomplicated (without systemic symptoms) or Complicated (systemic symptoms)? @ -Uncomplicated Side effects of treatment? @ -[No] Exacerbation, Progression, or Severe Exacerbation? @ -[No] Poses a threat to life or bodily function? How? (Chest pain, [place], [place], pneumonia, PE, COPD, DKA, ARF, appy, cholecystitis, CVA, Diverticulitis, Homicidal, Suicidal, threat to staff... and all critical care pts) @ -Low likelihood Disposition Clinical Impression: Headache Disposition: HOME SELF-CARE Condition: Stable Instructions (If sedation given, give patient instructions): Acute Headache (ED) Additional Instructions: Please return to the nearest emergency department if symptoms worsen or persist Is patient prescribed a controlled substance at d/c from ED?: No Referrals: Kuldeep Freire DO [Primary Care Provider] - 1-2 days Time of Disposition: 18:48
--- NOTE | 2022-11-08 18:11 | CT ---
EXAMINATION TYPE: CT brain wo con CT DLP: 1143.2 mGycm, Automated exposure control for dose reduction was used. DATE OF EXAM: 11/08/2022 6:06 PM COMPARISON: None. CLINICAL INDICATION:Male, 32 years old with history of headache, c/o headaches, dizziness, confusion. no head injury. TECHNIQUE: Brain: Axial CT images of the brain were obtained with coronal and sagittal reformats created and rev iewed. Contrast used: None. Oral contrast used: None. FINDINGS: Brain: Extra-axial spaces: No abnormal extra-axial fluid collections. Ventricular system: Within normal limits Cerebral parenchyma: No acute intraparenchymal hemorrhage or mass effect. The rivera-white junction is well differentiated. Cerebellum: Unremarkable. Mass effect: No evidence of midline shift. Intracranial vasculature: unremarkable Soft tissues: Normal. Calvarium/osseous structures: No depressed skull fracture. Paranasal sinuses and mastoid air cells: Mild scattered paranasal sinus disease. Visualized orbits: Orbital contents are intact. IMPRESSION: No acute intracranial process.
== END 2022-11-08 19:04 | disposition home or self-care (01) ==
LOC: EC 16:20
DX: R51.9 Headache, unspecified (principal); F12.90 Cannabis use, unspecified, uncomplicated; Z87.891 Personal history of nicotine dependence; Z88.1 Allergy status to other antibiotic agents
CPT/HCPCS: 70450; 99284

== ENCOUNTER 2022-12-23 00:08 | Emergency (ER) | payer OTHER ==
[2022-12-23 00:30] VITALS: RESP 18
--- NOTE | 2022-12-23 03:04 | ED ---
General Adult HPI - General Chief complaint: Abdominal Pain Stated complaint: ABD Pain Time Seen by Provider: 12/23/22 01:26 Source: patient, RN notes reviewed Mode of arrival: ambulatory Limitations: no limitations - History of Present Illness Initial comments: 32-year-old male with a past medical history of Crohn's presents to the emergency department the chief complaint of constipation. Patient reports that he has not had a large bowel movement for approximately 8 days. He reports that he is still eating and drinking the same. He reports that he has been taking MiraLAX with mild symptomatically relief. He does report being able to pass a small amount of stool after drinking large amount of coffee earlier today. He is accompanied symptoms of back pain. He denies any fever, nausea, vomiting, hematemesis, , dysuria, hematuria. Patient reports that he has a GI doctor appointment in approximately 1 week. - Related Data Home Medications Medication Instructions Recorded Confirmed Acetaminophen Tab [Tylenol Tab] 1,000 mg PO Q6HR PRN 04/09/21 08/27/21 Dextroamphetamine/Amphetamine 10 mg PO DAILY 08/27/21 08/27/21 [Dextroamphetamine/Amphetamine ER 10 mg Cap] Previous Rx's Medication Instructions Recorded Lactulose [Cephulac] 10 gm PO DAILY #300 ml 12/23/22 Allergies Allergy/AdvReac Type Severity Reaction Status Date / Time cefaclor [From [facility]] Allergy Rash/Hives Verified 12/23/22 00:30 Review of Systems ROS Statement: Those systems with pertinent positive or pertinent negative responses have been documented in the HPI. ROS Other: All systems not noted in ROS Statement are negative. Past Medical History Past Medical History: Chest Pain / Angina, GERD/Reflux, GI Bleed Additional Past Medical History / Comment(s): RECENT EC VISIT FOR CP, W/U NL; HAS ECHO 02/03/18, STRESS TEST 02/14/18. HAVING DIARRHEA, SOME BLOOD IN STOOL OCC, ONSET 08/2017 EST, ABD DISCOMFORT. CHRONS History of Any Multi-Drug Resistant Organisms: None Reported Past Surgical History: Appendectomy, Orthopedic Surgery, Tonsillectomy Additional Past Surgical History / Comment(s): Right hand fx 7 yrs ago Past Anesthesia/Blood Transfusion Reactions: No Reported Reaction Additional Past Anesthesia/Blood Transfusion Reaction / Comment(s): No transfusion Past Psychological History: No Psychological Hx Reported Smoking Status: Former smoker Past Alcohol Use History: Rare Past Drug Use History: Marijuana - Past Family History Mother Family Medical History: CVA/TIA General Exam - General Exam Comments Initial Comments: General: Alert, in no acute distress Head: atraumatic normocephalic. Eyes PERRL, EOMI intact, mucous membranes moist Respiratory: Lungs clear to auscultation bilaterally Cardiovascular: Heart rate regular rate and rhythm Abdominal: Soft without guarding or rebound Extremities: Normal inspection with full range of motion and normal capillary refill Neuroogic: alert and oriented 3, CN II-XII intact, able to ambulate with steady gait Skin: warm dry and intact with normal color Limitations: no limitations Course Vital Signs 12/23/22 00:27 Temperature 97.7 F Pulse Rate 73 Respiratory 18 Rate Blood Pressure 139/87 O2 Sat by Pulse 99 Oximetry Medical Decision Making - Medical Decision Making Was pt. sent in by a medical professional or institution (, PA, CIVIL GEOTECHNICAL ENGINEER, urgent care, hospital, or shelter...) When possible be specific @ -[No] Did you speak to anyone other than the patient for history (EMS, parent, family, police, friend...)? What history was obtained from this source @ -[No] Did you review nursing and triage notes (agree or disagree)? Why? @ -[I reviewed and agree with nursing and triage notes] Were old charts reviewed (outside hosp., previous admission, EMS record, old EKG, old radiological studies, urgent care reports/EKG's, shelter records)? Report findings @ -[No old charts were reviewed] Differential Diagnosis (chest pain, altered mental status, abdominal pain women, abdominal pain men, vaginal bleeding, weakness, fever, dyspnea, syncope, headache, dizziness, GI bleed, back pain, seizure, CVA, palpatations, mental health, musculoskeletal)? @ -[not applicable] EKG interpreted by me (3pts min.). @ -[As above] X-rays interpreted by me (1pt min.). @ -KUB x-ray does not reveal any evidence of obstruction CT interpreted by me (1pt min.). @ -[None done] U/S interpreted by me (1pt. min.). @ -[None done] What testing was considered but not performed or refused? (CT, X-rays, U/S, labs)? Why? @ -[None] What meds were considered but not given or refused? Why? @ -[None] Did you discuss the management of the patient with other professionals (professionals i.e. , KALEY, CIVIL GEOTECHNICAL ENGINEER, lab, RT, psych nurse, social services coordinator, air conditioning installer supervisor, teacher, third officer, case finisher)? Give summary @ -[No] Was smoking cessation discussed for >3mins.? @ -[No] Was critical care preformed (if so, how long)? @ -[No] Were there social determinants of health that impacted care today? How? (Homelessness, low income, unemployed, alcoholism, drug addiction, transportation, low edu. Level, literacy, decrease access to med. care, mcc, rehab)? @ -[No] Was there de-escalation of care discussed even if they declined (Discuss DNR or withdrawal of care, Hospice)? DNR status @ -[No] What co-morbidities impacted this encounter? (DM, HTN, Smoking, COPD, CAD, Cancer, CVA, ARF, Chemo, Hep., AIDS, mental health diagnosis, sleep apnea, morbid obesity)? @ -[None] Was patient admitted / discharged? Hospital course, mention meds given and route, prescriptions, significant lab abnormalities, going to OR and other pertinent info. @ -Discharged. This is a pleasant 32-year-old male who presents the emergency department with constipation. Patient had a thorough history and physical exam performed on the ED. Physical exam unremarkable. Abdominal exam is benign abdomen soft, non-distended. Patient had KUB x-ray was is negative for any evidence of obstruction. Patient was offered enema however he declined. Patient was given prescription for lactulose. Strict return to parameters were discussed. Patient discharged in stable condition. Case discussed with Dr. Grullon [facility] who agrees with Plan of care. Undiagnosed new problem with uncertain prognosis? @ -[No] Drug Therapy requiring intensive monitoring for toxicity (Heparin, Nitro, Insulin, Cardizem)? @ -[No] Were any procedures done? @ -[No] Diagnosis/symptom? @ -Constipation - Abdominal Pain Acute, or Chronic, or Acute on Chronic? @ -Acute Uncomplicated (without systemic symptoms) or Complicated (systemic symptoms)? @ -Uncomplicated Side effects of treatment? @ -[No] Exacerbation, Progression, or Severe Exacerbation? @ -[No] Poses a threat to life or bodily function? How? (Chest pain, [place], [place], pneumonia, PE, COPD, DKA, ARF, appy, cholecystitis, CVA, Diverticulitis, Homicidal, Suicidal, threat to staff... and all critical care pts) @ -Low likelihood Disposition Clinical Impression: Abdominal pain, Constipation Disposition: HOME SELF-CARE Condition: Stable Instructions (If sedation given, give patient instructions): Constipation (ED), Abdominal Pain (ED) Additional Instructions: Please increase fluids and fiber Please take lactulose to promote bowel movements Please return to the nearest emergency department with worsening presents Prescriptions: Lactulose [Cephulac] 10 gm PO DAILY #300 ml Is patient prescribed a controlled substance at d/c from ED?: No Referrals: Kuldeep Freire DO [Primary Care Provider] - 1-2 days Time of Disposition: 03:04
--- NOTE | 2022-12-23 03:11 | XR ---
EXAM: XR Abdomen, 1 View and XR Chest, 1 View CLINICAL HISTORY: ITS.REASON XR Reason: constipation TECHNIQUE: Frontal view of the chest and abdomen/pelvis. COMPARISON: No relevant prior studies available. FINDINGS: Lungs: Unremarkable. No consolidation. Pleural space: Unremarkable. No pneumothorax. Heart: Unremarkable. No cardiomegaly. Mediastinum: Unremarkable. Intraperitoneal space: No free air. Gastrointestinal tract: Unremarkable. No dilation. Bones/joints: Unremarkable. IMPRESSION: Normal chest and abdomen/pelvis x-rays.
[2022-12-23 03:20] VITALS: BP 124/81; PULSE 67; TEMP 98.6
== END 2022-12-23 03:20 | disposition home or self-care (01) ==
LOC: EC 00:08
DX: K59.00 Constipation, unspecified (principal); R10.9 Unspecified abdominal pain; Z87.891 Personal history of nicotine dependence; F12.90 Cannabis use, unspecified, uncomplicated; Z88.1 Allergy status to other antibiotic agents
CPT/HCPCS: 74018; 99284

== ENCOUNTER 2024-07-15 15:21 | Emergency (ER) | payer OTHER ==
--- NOTE | 2024-07-15 16:31 | ED ---
Headache HPI - General Chief Complaint: Headache Stated Complaint: headache, dizziness Time Seen by Provider: 07/15/24 16:30 Source: patient, RN notes reviewed Mode of arrival: ambulatory Limitations: no limitations - History of Present Illness Initial Comments: 34-year-old male presenting for headache x 10 days. Describes an intermittent pain and pressure behind his left eye that radiates into the posterior head. Reports intermittent dizziness and trouble focusing as well. Admits nausea denies vomiting. Denies injury or trauma. Denies vision changes or focal weakness or numbness. Denies blood thinners. He has a history of migraines but states this feels different. States he has a history of ADHD and takes Adderall. - Related Data Home Medications Medication Instructions Recorded Confirmed Acetaminophen Tab [Tylenol Tab] 1,000 mg PO Q6HR PRN 04/09/21 08/27/21 Dextroamphetamine/Amphetamine 10 mg PO DAILY 08/27/21 08/27/21 [Dextroamphetamine/Amphetamine ER 10 mg Cap] Previous Rx's Medication Instructions Recorded Lactulose [Cephulac] 10 gm PO DAILY #300 ml 12/23/22 Allergies Allergy/AdvReac Type Severity Reaction Status Date / Time cefaclor [From Ceclor] Allergy Rash/Hives Verified 12/23/22 00:30 Review of Systems ROS Statement: Those systems with pertinent positive or pertinent negative responses have been documented in the HPI. ROS Other: All systems not noted in ROS Statement are negative. Past Medical History Past Medical History: Chest Pain / Angina, GERD/Reflux, GI Bleed Additional Past Medical History / Comment(s): RECENT EC VISIT FOR CP, W/U NL; HAS ECHO 02/03/18, STRESS TEST 02/14/18. HAVING DIARRHEA, SOME BLOOD IN STOOL OCC, ONSET 08/2017 EST, ABD DISCOMFORT. CHRONS History of Any Multi-Drug Resistant Organisms: None Reported Past Surgical History: Appendectomy, Orthopedic Surgery, Tonsillectomy Additional Past Surgical History / Comment(s): Right hand fx 7 yrs ago Past Anesthesia/Blood Transfusion Reactions: No Reported Reaction Additional Past Anesthesia/Blood Transfusion Reaction / Comment(s): No transfusion Past Psychological History: Anxiety Smoking Status: Former smoker Past Alcohol Use History: Rare Past Drug Use History: Marijuana - Past Family History Mother Family Medical History: CVA/TIA General Exam - General Exam Comments Initial Comments: Visual Physical Exam Vital signs reviewed General: Well-appearing, nontoxic, no acute distress. Head: Normocephalic, atraumatic Eyes: PERRLA, EOMI ENT: Airway patent Chest: Nonlabored breathing Skin: No visual rash, normal skin tone Neuro: Alert and oriented 3 Musculoskeletal: No gross abnormalities Limitations: no limitations General appearance: alert, in no apparent distress Head exam: Present: atraumatic, normocephalic, normal inspection Eye exam: Present: normal appearance, PERRL, EOMI. Absent: scleral icterus, conjunctival injection, periorbital swelling ENT exam: Present: normal exam, mucous membranes moist Neck exam: Present: normal inspection. Absent: tenderness, meningismus, lymphadenopathy Respiratory exam: Present: normal lung sounds bilaterally. Absent: respiratory distress, wheezes, rales, rhonchi, stridor Cardiovascular Exam: Present: regular rate, normal rhythm, normal heart sounds. Absent: systolic murmur, diastolic murmur, rubs, gallop, clicks Neurological exam: Present: alert, oriented X3, CN II-XII intact Psychiatric exam: Present: normal affect, normal mood Skin exam: Present: warm, dry, intact, normal color. Absent: rash Course Vital Signs 07/15/24 07/15/24 15:55 17:41 Temperature 97.9 F 98.0 F Pulse Rate 70 74 Respiratory 20 18 Rate Blood Pressure 165/94 143/78 O2 Sat by Pulse 98 98 Oximetry Medical Decision Making - Medical Decision Making I completed the quick note portion of this chart signed Marisa Pendleton PA-C Was pt. sent in by a medical professional or institution ([facility], [facility], urgent care, hospital, or detention...) When possible be specific @ -No Did you speak to anyone other than the patient for history (EMS, parent, family, police, friend...)? What history was obtained from this source @ -No Did you review nursing and triage notes (agree or disagree)? Why? @ -I reviewed and agree with nursing and triage notes Were old charts reviewed (outside hosp., previous admission, EMS record, old EKG, old radiological studies, urgent care reports/EKG's, detention records)? Report findings @ -No old charts were reviewed Differential Diagnosis (chest pain, altered mental status, abdominal pain women, abdominal pain men, vaginal bleeding, weakness, fever, dyspnea, syncope, headache, dizziness, GI bleed, back pain, seizure, CVA, palpatations, mental health, musculoskeletal)? @ -Differential Headache: Migraine, tension, cluster, carbon monoxide, central venous thrombosis, pension karma temporal arteritis, acute closure glaucoma, intercranial hemorrhage, mastoiditis, sinusitis, head injury, this is not meant to be an all-inclusive list. EKG interpreted by me (3pts min.). @ -None X-rays interpreted by me (1pt min.). @ -None done CT interpreted by me (1pt min.). @ -CT brain reveals no acute intracranial process U/S interpreted by me (1pt. min.). @ -None done What testing was considered but not performed or refused? (CT, X-rays, U/S, labs)? Why? @ -Patient declined blood work and viral swabs, states he only wants to get CT of head What meds were considered but not given or refused? Why? @ -Declines IV or IM medications Did you discuss the management of the patient with other professionals (professionals i.e. , PA, IRON BENDER, lab, RT, psych nurse, social media senior associate, discovery guide, teacher, corporate development officer, adult protective caseworker)? Give summary @ -No Was smoking cessation discussed for >3mins.? @ -No Was critical care preformed (if so, how long)? @ -No Were there social determinants of health that impacted care today? How? (Homelessness, low income, unemployed, alcoholism, drug addiction, transportation, low edu. Level, literacy, decrease access to med. care, senior care, rehab)? @ -No Was there de-escalation of care discussed even if they declined (Discuss DNR or withdrawal of care, Hospice)? DNR status @ -No What co-morbidities impacted this encounter? (DM, HTN, Smoking, COPD, CAD, Cancer, CVA, ARF, Chemo, Hep., AIDS, mental health diagnosis, sleep apnea, morbid obesity)? @ -None Was patient admitted / discharged? Hospital course, mention meds given and route, prescriptions, significant lab abnormalities, going to OR and other pertinent info. @ -Discharge. This is a 34-year-old male presenting for headache x 10 days. Patient is hypertensive upon initial evaluation. Neurological examination is unremarkable. No focal deficits. Patient declines blood work, viral swabs, and migraine cocktail at this time and states he would only like to get a CT of his brain. He was provided with a dose of ibuprofen and Reglan orally. CT brain reveals no acute intracranial process. Discussed results with patient. At this time I recommended CT with contrast however patient declines and states he would like to follow-up with his PCP. Appropriate return precautions and supportive care discussed. Case was discussed with my ED attending Dr. Knowles. Undiagnosed new problem with uncertain prognosis? @ -No Drug Therapy requiring intensive monitoring for toxicity (Heparin, Nitro, Insulin, Cardizem)? @ -No Were any procedures done? @ -No Diagnosis/symptom? @ -Headache Acute, or Chronic, or Acute on Chronic? @ -Acute Uncomplicated (without systemic symptoms) or Complicated (systemic symptoms)? @ -Complicated Side effects of treatment? @ -No Exacerbation, Progression, or Severe Exacerbation? @ -No Poses a threat to life or bodily function? How? (Chest pain, [place], GA, pneumonia, PE, COPD, DKA, ARF, appy, cholecystitis, CVA, Diverticulitis, Homicidal, Suicidal, threat to staff... and all critical care pts) @ -Unlikely at this time Disposition Clinical Impression: Cluster headache Disposition: HOME SELF-CARE Condition: Stable Instructions (If sedation given, give patient instructions): Acute Headache (ED) Additional Instructions: Follow-up with PCP as discussed. Please return to the Emergency Department if symptoms worsen or any other concerns. Is patient prescribed a controlled substance at d/c from ED?: No Referrals: Kuldeep Freire DO [Primary Care Provider] - 1-2 days Time of Disposition: 17:57
--- NOTE | 2024-07-15 17:05 | CT ---
EXAMINATION TYPE: CT brain wo con DATE OF EXAM: 07/15/2024 COMPARISON: CLINICAL INDICATION: Male, 34 years old with history of headache x 10 days; PHH, headache for 10 dys behind left eye posterior head. nausea no vomiting. skin w.d full rom of head neck, TECHNIQUE: CT of the brain performed without contrast with sagittal and coronal reformats. CT DLP: 1143.[address] CTDI: mGy Automated exposure control for dose reduction was used. FINDINGS: There is no acute intracranial hemorrhage, mass effect, or midline shift identified. The ventricles and sulci are within normal limits in size. The globes are intact and the visualized sinuses are jasmine ar. IMPRESSION: No acute intracranial hemorrhage, mass effect, or midline shift is seen. [facility], , 07/15/2024 5:03 PM
[2024-07-15] MEDS: IBUPROFEN 800 MG TAB PO STA (17:40)
[2024-07-15] MEDS: METOCLOPRAMIDE 10 MG TAB PO STA (17:41)
[2024-07-15 17:42] VITALS: BP 143/78; PULSE 74; RESP 18; TEMP 98
== END 2024-07-15 18:09 | disposition home or self-care (01) ==
LOC: EC 15:21
DX: G44.009 Cluster headache syndrome, unspecified, not intractable (principal); F90.9 Attention-deficit hyperactivity disorder, unspecified type; Z87.891 Personal history of nicotine dependence; Z88.8 Allergy status to other drugs, medicaments and biological substances
CPT/HCPCS: 70450; 99284

== ENCOUNTER 2024-07-26 09:32 | Emergency (ER) | payer OTHER ==
[2024-07-26 09:42] VITALS: RESP 18; TEMP 97.4
--- NOTE | 2024-07-26 10:14 | ED ---
Dizziness [facility] - General Chief Complaint: Dizziness Stated Complaint: dizziness,chest pain Time Seen by Provider: 07/26/24 09:43 Source: patient, RN notes reviewed Mode of arrival: ambulatory Limitations: no limitations - History of Present Illness Initial Comments: This is a 34-year-old male who presents to the emergency department for dizziness and chest pain. States over the last 2 weeks he has had problems with insomnia where he falls asleep, but then wakes up in the middle of the night in a panic. He has also noticed that he has been very disoriented and confused over the last couple of weeks. Yesterday he started to notice an intermittent s harp chest pain. Reports mild shortness of breath associated with this. Also reports intermittent headaches. He was evaluated here for this on 07/[address] scan of the brain which was negative. However, he declined blood work at that time. States that he is now agreeable to lab work. MD Complaint: dizziness, lightheadedness - Related Data Home Medications Medication Instructions Recorded Confirmed Acetaminophen Tab [Tylenol Tab] 1,000 mg PO Q6HR PRN 04/09/21 08/27/21 Dextroamphetamine/Amphetamine 10 mg PO DAILY 08/27/21 08/27/21 [Dextroamphetamine/Amphetamine ER 10 mg Cap] Previous Rx's Medication Instructions Recorded Lactulose [Cephulac] 10 gm PO DAILY #300 ml 12/23/22 traZODone HCL [Desyrel] 50 mg PO HS PRN #20 tab 07/26/24 Allergies Allergy/AdvReac Type Severity Reaction Status Date / Time cefaclor [From [facility]] Allergy Rash/Hives Verified 07/26/24 09:42 Review of Systems ROS Statement: Those systems with pertinent positive or pertinent negative responses have been documented in the HPI. ROS Other: All systems not noted in ROS Statement are negative. Past Medical History Past Medical History: Chest Pain / Angina, GERD/Reflux, GI Bleed Additional Past Medical History / Comment(s): RECENT EC VISIT FOR CP, W/U NL; HAS ECHO 02/03/18, STRESS TEST 02/14/18. HAVING DIARRHEA, SOME BLOOD IN STOOL OCC, ONSET 08/2017 EST, ABD DISCOMFORT. CHRONS History of Any Multi-Drug Resistant Organisms: None Reported Past Surgical History: Appendectomy, Orthopedic Surgery, Tonsillectomy Additional Past Surgical History / Comment(s): Right hand fx 7 yrs ago Past Anesthesia/Blood Transfusion Reactions: No Reported Reaction Additional Past Anesthesia/Blood Transfusion Reaction / Comment(s): No transfusion Past Psychological History: Anxiety Smoking Status: Former smoker Past Alcohol Use History: Rare Past Drug Use History: Marijuana - Past Family History Mother Family Medical History: CVA/TIA General Exam Limitations: no limitations General appearance: alert, in no apparent distress Head exam: Present: atraumatic, normocephalic, normal inspection Respiratory exam: Present: normal lung sounds bilaterally. Absent: respiratory distress, wheezes, rales, rhonchi, stridor Cardiovascular Exam: Present: regular rate, normal rhythm Neurological exam: Present: alert, oriented X3, CN II-XII intact Expanded Cerebellar function: Finger to Nose: Normal, Heel to Ge: Normal, Romberg: Normal Motor strength exam: RUE: 5, LUE: 5, RLE: 5, LLE: 5 Psychiatric exam: Present: normal affect, normal mood Skin exam: Present: warm, dry, intact, normal color. Absent: rash Course Vital Signs 07/26/24 07/26/24 09:40 11:56 Temperature 97.4 F L Pulse Rate 73 65 Respiratory 18 18 Rate Blood Pressure 131/85 118/72 O2 Sat by Pulse 97 98 Oximetry Medical Decision Making - Medical Decision Making This is a 34 year old male who presents to the emergency department for dizziness and chest pain. Was pt. sent in by a medical professional or institution? @ -No Did you speak to anyone other than the patient for history? @ -No Did you review nursing and triage notes? @ -Yes, and I agree, it is accurate with regards to the patient's symptoms. Were old charts reviewed? @ -CT scan of the brain from 07/15/2024 revealing no acute intracranial process. Differential Diagnosis? @ -Differential Dizziness: Benign paroxysmal positional Vertigo, Meniere's disease, otitis media, acoustic neuroma, vertebrobasilar insufficiency, cerebellar stroke, encephalitis, hypovolemic, arrhythmia, coronary artery syndrome, anemia, this is not meant to be an all-inclusive list EKG interpreted by me (3pts min.)? @ -EKG interpreted by me demonstrating the following: Sinus rhythm. Ventricular rate 69 bpm, MN interval 168 ms, QRS duration 94 ms, QTc 391 ms. X-rays interpreted by me (1pt min.)? @ -Chest x-ray obtained, my interpretation identifies no localized consolidatio ns or infiltrates. CT interpreted by me (1pt min.)? @ -Not obtained U/S interpreted by me (1pt. min.)? @ -Not obtained What testing was considered but not performed? (CT, X-rays, U/S, labs)? Why? @ -Cepheid 4-plex testing, however patient refused. What meds were considered but not given? Why? @ -None Did you discuss the management of the patient with other professionals? @ -No Did you reconcile home meds? @ -No Was smoking cessation discussed for >3mins.? @ -No Was critical care preformed (if so, how long)? @ -No Were there social determinants of health that impacted care today? How? (Homelessness, low income, unemployed, alcoholism, drug addiction, transportation, low edu. Level, literacy, decrease access to med. care, skilled nursing, rehab)? @ -No Was there de-escalation of care discussed even if they declined? (Discuss DNR or withdrawal of care, Hospice)? @ -No What co-morbidities impacted this encounter? (DM, HTN, Smoking, COPD, CAD, Cancer, CVA, Hep., AIDS, mental health diagnosis, sleep apnea, morbid obesity)? @ -None Was patient admitted / discharged? @ -Discharged. Lab work unremarkable. UDS positive for marijuana. Urinalysis negative for signs of infection. Chest x-ray reveals no acute process. I did advise Cepheid 4 Plex testing to evaluate for any viral condition contributing to his symptoms, however patient refused. He did also have a CT scan of the brain on 07/15 revealing no acute process. The cause of his symptoms at this point is not entirely clear. However, if he is unable to sleep, it could very well be contributing to his dizziness and confusion. We discussed [id number] melatonin to help him sleep. However, if that is not effective trazodone was prescribed as well to see if that offers any benefit. Otherwise advised follow-up with his PCP in the next couple of days for reevaluation of symptoms. Patient discharged home in stable condition. Case discussed with ED attending Dr. Coronado. Return precautions reviewed in depth, the patient is instructed to return to the emergency department with any new, worsening, or concerning symptoms. Patient verbalized understanding. Undiagnosed new problem with uncertain prognosis? @ -None Drug Therapy requiring intensive monitoring for toxicity (Heparin, Nitro, Insulin, Cardizem)? @ -None Were any procedures done? @ -None Diagnosis/symptom? @ -Insomnia, dizziness, chest pain Acute, or Chronic, or Acute on Chronic? @ -Acute Uncomplicated (without systemic symptoms) or Complicated (systemic symptoms)? @ -Uncomplicated Side effects of treatment? @ -None Exacerbation, Progression, or Severe Exacerbation] @ -Not applicable Poses a threat to life or bodily function? @ -No - Lab Data Result diagrams: 07/26/24 10:28 07/26/24 10:28 Lab Results 07/26/24 07/26/24 07/26/24 Range/Units 10:28 10: 10:28 WBC 10.1 (3.8-10.6) k/uL RBC 4.86 (4.30-5.90) m/uL Hgb 14.1 (13.0-17.5) gm/dL Hct 43.1 (39.0-53.0) % MCV 88.7 (80.0-100.0) fL MCH 29.1 (25.0-35.0) pg MCHC 32.8 (31.0-37.0) g/dL RDW 12.8 (11.5-15.5) % Plt Count 360 (150-450) k/uL MPV 8.2 Neutrophils % 61 % Lymphocytes % 29 % Monocytes % 6 % Eosinophils % 2 % Basophils % 0 % Neutrophils # 6.2 (1.3-7.7) k/uL Lymphocytes # 2.9 (1.0-4.8) k/uL Monocytes # 0.6 (0-1.0) k/uL Eosinophils # 0.2 (0-0.7) k/uL Basophils # 0.0 (0-0.2) k/uL Sodium 139 (137-145) mmol/L Potassium 3.8 (3.5-5.1) mmol/L Chloride 102 (98-107) mmol/L Carbon Dioxide 27 (22-30) mmol/L Anion Gap 10 mmol/L BUN 16 (9-20) mg/dL Creatinine 0.97 (0.66-1.25) mg/dL Est GFR (CKD-EPI)AfAm >90 (>60 ml/min/1.73 sqM) Est GFR (CKD-EPI)NonAf >90 (>60 ml/min/1.73 sqM) Glucose 95 (74-99) mg/dL Calcium 9.7 (8.4-10.2) mg/dL Magnesium 1.8 (1.6-2.3) mg/dL Total Bilirubin 0.6 (0.2-1.3) mg/dL AST 34 (17-59) U/L ALT 35 (4-49) U/L Alkaline Phosphatase 54 (38-126) U/L Troponin I <0.012 (0.000-0.034) ng/mL Total Protein 6.9 (6.3-8.2) g/dL Albumin 4.3 (3.5-5.0) g/dL TSH 1.400 (0.465-4.680) mIU/L Urine Color Urine Appearance (Clear) Urine pH (5.0-8.0) Ur Specific [place] (1.001-1.035) Urine Protein (Negative) Urine Glucose (UA) (Negative) Urine Ketones (Negative) Urine Blood (Negative) Urine Nitrite (Negative) Urine Bilirubin (Negative) Urine Urobilinogen (<2.0) mg/dL Ur Leukocyte Esterase (Negative) Urine WBC (0-5) /hpf Uric Acid Crystals (None) /hpf Urine Mucus (None) /hpf Urine Opiates Screen (NotDetected) Ur Oxycodone Screen (NotDetected) Urine Methadone Screen (NotDetected) Ur Barbiturates Screen (NotDetected) U Tricyclic Antidepress (NotDetected) Ur Phencyclidine Scrn (NotDetected) Ur Amphetamines Screen (NotDetected) U Methamphetamines Scrn (NotDetected) U Benzodiazepines Scrn (NotDetected) Urine Cocaine Screen (NotDetected) U Marijuana (THC) Screen (NotDetected) 07/26/24 Range/Units 12:03 WBC (3.8-10.6) k/uL RBC (4.30-5.90) m/uL Hgb (13.0-17.5) gm/dL Hct (39.0-53.0) % MCV (80.0-100.0) fL MCH (25.0-35.0) pg MCHC (31.0-37.0) g/dL RDW (11.5-15.5) % Plt Count (150-450) k/uL MPV Neutrophils % % Lymphocytes % % Monocytes % % Eosinophils % % Basophils % % Neutrophils # (1.3-7.7) k/uL Lymphocytes # (1.0-4.8) k/uL Monocytes # (0-1.0) k/uL Eosinophils # (0-0.7) k/uL Basophils # (0-0.2) k/uL Sodium (137-145) mmol/L Potassium (3.5-5.1) mmol/L Chloride (98-107) mmol/L Carbon Dioxide (22-30) mmol/L Anion Gap mmol/L BUN (9-20) mg/dL Creatinine (0.66-1.25) mg/dL Est GFR (CKD-EPI)AfAm (>60 ml/min/1.73 sqM) Est GFR (CKD-EPI)NonAf (>60 ml/min/1.73 sqM) Glucose (74-99) mg/dL Calcium (8.4-10.2) mg/dL Magnesium (1.6-2.3) mg/dL Total Bilirubin (0.2-1.3) mg/dL AST (17-59) U/L ALT (4-49) U/L Alkaline Phosphatase (38-126) U/L Troponin I (0.000-0.034) ng/mL Total Protein (6.3-8.2) g/dL Albumin (3.5-5.0) g/dL TSH (0.465-4.680) mIU/L Urine Color Yellow Urine Appearance Cloudy (Clear) Urine pH 5.5 (5.0-8.0) Ur Specific [place] 1.021 (1.001-1.035) Urine Protein Negative (Negative) Urine Glucose (UA) Negative (Negative) Urine Ketones Trace H (Negative) Urine Blood Negative (Negative) Urine Nitrite Negative (Negative) Urine Bilirubin Negative (Negative) Urine Urobilinogen <2.0 (<2.0) mg/dL Ur Leukocyte Esterase Negative (Negative) Urine WBC 2 (0-5) /hpf Uric Acid Crystals Occasional H (None) /hpf Urine Mucus Moderate H (None) /hpf Urine Opiates Screen Not Detected (NotDetected) Ur Oxycodone Screen Not Detected (NotDetected) Urine Methadone Screen Not Detected (NotDetected) Ur Barbiturates Screen Not Detected (NotDetected) U Tricyclic Antidepress Not Detected (NotDetected) Ur Phencyclidine Scrn Not Detected (NotDetected) Ur Amphetamines Screen Not Detected (NotDetected) U Methamphetamines Scrn Not Detected (NotDetected) U Benzodiazepines Scrn Not Detected (NotDetected) Urine Cocaine Screen Not Detected (NotDetected) U Marijuana (THC) Screen Detected H (NotDetected) - Radiology Data Radiology results: report reviewed, image reviewed Disposition Clinical Impression: Dizziness, Insomnia, Chest pain Disposition: HOME SELF-CARE Instructions (If sedation given, give patient instructions): Dizziness (ED), Insomnia (ED), Noncardiac Chest Pain (ED) Additional Instructions: Return to the emergency department with any new, worsening, or concerning sympto ms. Try taking the trazodone at night. You can take 1 to 2 tablets at a time. See if this helps with your insomnia. Make sure you follow-up with your primary care provider in the next couple of days for reevaluation of your symptoms and discussion of any additional testing. Prescriptions: traZODone HCL [Desyrel] 50 mg PO HS PRN #20 tab PRN Reason: Insomnia Is patient prescribed a controlled substance at d/c from ED?: No Referrals: Kuldeep Freire DO [Primary Care Provider] - 1-2 days Time of Disposition: 13:08
[2024-07-26] MEDS: SODIUM CHLORIDE 0.9% 1,000 ML IV STA (10:33)
--- NOTE | 2024-07-26 10:47 | XR ---
EXAMINATION TYPE: XR chest 2V DATE OF EXAM: 07/26/2024 10:43 AM COMPARISON: Chest radiographs from 06/23/2020 TECHNIQUE: XR chest 2V Frontal and lateral views of the chest. CLINICAL INDICATION:Male, 34 years old with history of Chest pain; FINDINGS: Lungs/Pleura: There is no evidence of pleural effusion, focal consolidation, or pneumothorax. Pulmonary vascularity: Unremarkable. Heart/mediastinum: Cardiomediastinal silhouette is unremarkable. Musculoskeletal: No acute osseous pathology. IMPRESSION: No acute cardiopulmonary disease/process. [facility], , 07/26/2024 10:45 AM
[2024-07-26 11:11] LABS: ALT 35 U/L (4-49); AST 34 U/L (17-59); African American GFR (CKD) >90 (>60 ml/min/1.73 sqM); Albumin 4.3 g/dL (3.5-5.0); Alkaline Phosphatase 54 U/L (38-126); Anion Gap 10 mmol/L; Blood Urea Nitrogen 16 mg/dL (9-20); Calcium 9.7 mg/dL (8.4-10.2); Carbon Dioxide 27 mmol/L (22-30); Chloride 102 mmol/L (98-107); Glucose 95 mg/dL (74-99); Magnesium 1.8 mg/dL (1.6-2.3); Non-African American GFR(CKD) >90 (>60 ml/min/1.73 sqM); Potassium 3.8 mmol/L (3.5-5.1); Sodium 139 mmol/L (137-145); Total Bilirubin 0.6 mg/dL (0.2-1.3); Total Protein 6.9 g/dL (6.3-8.2)
[2024-07-26 11:56] VITALS: BP 118/72; PULSE 65
[2024-07-26 12:22] LABS: Basophils % (A) 0 %; Eosinophils # (A) 0.2 k/uL (0-0.7); Eosinophils % (A) 2 %; HCT 43.1 % (39.0-53.0); HGB 14.1 gm/dL (13.0-17.5); Lymphocytes # (A) 2.9 k/uL (1.0-4.8); Lymphocytes % (A) 29 %; MCH 29.1 pg (25.0-35.0); MCHC 32.8 g/dL (31.0-37.0); MCV 88.7 fL (80.0-100.0); Mean Platelet Volume 8.2; Monocytes # (A) 0.6 k/uL (0-1.0); Monocytes % (A) 6 %; Neutrophils # (A) 6.2 k/uL (1.3-7.7); Neutrophils % (A) 61 %; Platelet Count 360 k/uL (150-450); RBC 4.86 m/uL (4.30-5.90); RDW 12.8 % (11.5-15.5); WBC 10.1 k/uL (3.8-10.6)
[2024-07-26 12:25] LABS: Appearance,Urine Cloudy (Clear); Bilirubin,Urine Negative (Negative); Blood,Urine Negative (Negative); Color,Urine Yellow; Glucose,Urine (UA) Negative (Negative); Ketones,Urine Trace (Negative); Leukocyte Esterase,Urine Negative (Negative); Mucus,Urine Moderate /hpf; Nitrite,Urine Negative (Negative); PH, Urine 5.5 (5.0-8.0); Protein,Urine Negative (Negative); Specific Gravity,Urine 1.021 (1.001-1.035); Uric Acid Crystals,Urine Occasional /hpf; Urn Cannabinoid Scrn Detected (NotDetected); Urobilinogen,Urine <2.0 mg/dL (<2.0); WBC,Urine 2 /hpf (0-5)
[2024-07-26 12:26] LABS: Amphetamine Screen,Urine Not Detected (NotDetected); Barbiturate Screen,Urine Not Detected (NotDetected); Benzodiazepines Screen,Urine Not Detected (NotDetected); Cocaine Screen,Urine Not Detected (NotDetected); Methadone Screen, Urine Not Detected (NotDetected); Opiate Screen,Urine Not Detected (NotDetected); Oxycodone Screen, Urine Not Detected (NotDetected); Phencyclidine Screen,Urine Not Detected (NotDetected); Tricyclic Antidepressant,Urine Not Detected (NotDetected)
== END 2024-07-26 13:21 | disposition home or self-care (01) ==
LOC: EC 09:32
DX: G47.00 Insomnia, unspecified (principal); R42 Dizziness and giddiness; R07.9 Chest pain, unspecified; Z87.891 Personal history of nicotine dependence; Z88.1 Allergy status to other antibiotic agents
CPT/HCPCS: 36415; 71046; 80053; 80306; 81001; 83735; 84443; 84484; 85025; 93005; 96360; 99284

== ENCOUNTER 2024-11-28 09:49 | Emergency (ER) | payer OTHER ==
[2024-11-28 09:58] VITALS: TEMP 98
[2024-11-28 10:24] LABS: Bilirubin,Urine Negative (Negative); Blood,Urine Negative (Negative); Color,Urine Yellow; Glucose,Urine (UA) Negative (Negative); Ketones,Urine 1+ (Negative); Leukocyte Esterase,Urine Negative (Negative); Nitrite,Urine Negative (Negative); PH, Urine 5.5 (5.0-8.0); Protein,Urine Negative (Negative); Specific Gravity,Urine 1.020 (1.001-1.035); Urobilinogen,Urine <2.0 mg/dL (<2.0)
--- NOTE | 2024-11-28 10:32 | ED ---
Abdominal Pain HPI - General Chief Complaint: Abdominal Pain Stated Complaint: Abd and back pain Time Seen by Provider: 11/28/24 10:04 Source: patient, RN notes reviewed Mode of arrival: ambulatory Limitations: no limitations - History of Present Illness Initial Comments: This is a 34-year-old male with history including GERD and GI bleed presenting for lower abdominal burning (/) since 10/18/2024. Patient states pain has been intermittent but is becoming more constant that worsens when supine, stating the ER is his last resort to discover in the cause. Patient endorses several holistic methods to resolve the pain without relief. Also endorses burning sensation in his stomach, suspecting possible H. pylori. Patient also endorses changes in his stool consistency both loose and hard in nature. Denies fever, chills, mid back pain, dysuria, hematuria, urethral discharge, hematochezia, melena. MD Complaint: abdominal pain Onset/Timin -: days(s) Location: epigastric, suprapubic Radiation: none Migration to: no migration Severity scale (1-10): 6 Quality: burning Consistency: constant Associated Symptoms: diarrhea, constipation - Related Data Home Medications Medication Instructions Recorded Confirmed Acetaminophen Tab [Tylenol Tab] 1,000 mg PO Q6HR PRN 04/09/21 08/27/21 Dextroamphetamine/Amphetamine 10 mg PO DAILY 08/27/21 08/27/21 [Dextroamphetamine/Amphetamine ER 10 mg Cap] Previous Rx's Medication Instructions Recorded Lactulose [Cephulac] 10 gm PO DAILY #300 ml 12/23/22 traZODone HCL [Desyrel] 50 mg PO HS PRN #20 tab 07/26/24 Allergies Allergy/AdvReac Type Severity Reaction Status Date / Time cefaclor [From Ceclor] Allergy Rash/Hives Verified 07/26/24 09:42 Review of Systems ROS Statement: Those systems with pertinent positive or pertinent negative responses have been documented in the HPI. ROS Other: All systems not noted in ROS Statement are negative. Past Medical History Past Medical History: Chest Pain / Angina, GERD/Reflux, GI Bleed Additional Past Medical History / Comment(s): RECENT EC VISIT FOR CP, W/U NL; HAS ECHO 02/03/18, STRESS TEST 02/14/18. HAVING DIARRHEA, SOME BLOOD IN STOOL OCC, ONSET 08/2017 EST, ABD DISCOMFORT. CHRONS History of Any Multi-Drug Resistant Organisms: None Reported Past Surgical History: Appendectomy, Orthopedic Surgery, Tonsillectomy Additional Past Surgical History / Comment(s): Right hand fx 7 yrs ago Past Anesthesia/Blood Transfusion Reactions: No Reported Reaction Additional Past Anesthesia/Blood Transfusion Reaction / Comment(s): No transfusion Past Psychological History: ADD/ADHD, Anxiety Smoking Status: Former smoker Past Alcohol Use History: Rare Past Drug Use History: Marijuana - Past Family History Mother Family Medical History: CVA/TIA General Exam Limitations: no limitations General appearance: alert, in no apparent distress Head exam: Present: atraumatic, normocephalic, normal inspection Eye exam: Present: normal appearance, PERRL, EOMI. Absent: scleral icterus, conjunctival injection, periorbital swelling ENT exam: Present: normal exam, mucous membranes moist Neck exam: Present: normal inspection. Absent: tenderness, meningismus, lymphadenopathy Respiratory exam: Present: normal lung sounds bilaterally. Absent: respiratory distress, wheezes, rales, rhonchi, stridor, accessory muscle use Cardiovascular Exam: Present: regular rate, normal rhythm, normal heart sounds. Absent: systolic murmur, diastolic murmur, rubs, gallop, clicks GI/Abdominal exam: Present: soft, tenderness (Positive suprapubic TTP and panic tenderness without guarding. Negative epigastric tenderness, Wang sign), normal bowel sounds. Absent: distended, guarding, rebound, rigid Extremities exam: Present: normal inspection, full ROM, normal capillary refill. Absent: tenderness, pedal edema, joint swelling, calf tenderness Back exam: Present: normal inspection Neurological exam: Present: alert, oriented X3, CN II-XII intact Psychiatric exam: Present: normal affect, normal mood Skin exam: Present: warm, dry, intact, normal color. Absent: rash Course Vital Signs 11/28/24 11/28/24 09:55 11:28 Temperature 98 F Pulse Rate 73 74 Respiratory 20 16 Rate Blood Pressure 152/86 116/65 O2 Sat by Pulse 98 98 Oximetry Medical Decision Making - Medical Decision Making Was pt. sent in by a medical professional or institution (, PA, ORIGINATION SPECIALIST, urgent care, hospital, or half-way...) When possible be specific @ -[No] Did you speak to anyone other than the patient for history (EMS, parent, family, police, friend...)? What history was obtained from this source @ -[No] Did you review nursing and triage notes (agree or disagree)? Why? @ -[I reviewed and agree with nursing and triage notes] Were old charts reviewed (outside hosp., previous admission, EMS record, old EKG, old radiological studies, urgent care reports/EKG's, half-way records)? Report findings @ -[No old charts were reviewed] Differential Diagnosis (chest pain, altered mental status, abdominal pain women, abdominal pain men, vaginal bleeding, weakness, fever, dyspnea, syncope, headache, dizziness, GI bleed, back pain, seizure, CVA, palpatations, mental health, musculoskeletal)? @ -Differential Abdominal Pain Men: Appendicitis, cholecystitis, diverticulosis, ischemic bowel, pancreatitis, hepatitis, UTI, gastroenteritis, AAA, incarcerated hernia, bowel obstruction, constipation, inflammatory bowel, hepatitis, peptic ulcer disease, splenic infarction, perforated viscus, testicular torsion, this is not meant to be an all-inclusive list EKG interpreted by me (3pts min.). @ -Not done X-rays interpreted by me (1pt min.). @ -[None done] CT interpreted by me (1pt min.). @ -AP CT shows no acute abdominal process. U/S interpreted by me (1pt. min.). @ -[None done] What testing was considered but not performed or refused? (CT, X-rays, U/S, labs)? Why? @ -Patient declined AP CT with contrast, stating he would prefer AP CT without contrast. Patient declined urea breath test and stool culture. Patient states he recently had BM. States he will follow-up with PCP/GI for further testing. What meds were considered but not given or refused? Why? @ -Patient declined IV Pepcid, Protonix and p.o. lidocaine. Did you discuss the management of the patient with other professionals (professionals i.e. , PA, ORIGINATION SPECIALIST, lab, RT, psych nurse, social worker masters, it support specialist, teacher, examining officer, correctional casework specialist)? Give summary @ -[No] Was smoking cessation discussed for >3mins.? @ -[No] Was critical care preformed (if so, how long)? @ -[No] Were there social determinants of health that impacted care today? How? (Doc elessness, low income, unemployed, alcoholism, drug addiction, transportation, low edu. Level, literacy, decrease access to med. care, senior living, rehab)? @ -[No] Was there de-escalation of care discussed even if they declined (Discuss DNR or withdrawal of care, Hospice)? DNR status @ -[No] What co-morbidities impacted this encounter? (DM, HTN, Smoking, COPD, CAD, Cancer, CVA, ARF, Chemo, Hep., AIDS, mental health diagnosis, sleep apnea, morbid obesity)? @ -[None] Was patient admitted / discharged? Hospital course, mention meds given and route, prescriptions, significant lab abnormalities, going to OR and other pertinent info. @ -[hospital course] Undiagnosed new problem with uncertain prognosis? @ -[No] Drug Therapy requiring intensive monitoring for toxicity (Heparin, Nitro, Insulin, Cardizem)? @ -[No] Were any procedures done? @ -[No] Diagnosis/symptom? @ -Abdominal pain of unknown etiology Acute, or Chronic, or Acute on Chronic? @ -Acute Uncomplicated (without systemic symptoms) or Complicated (systemic symptoms)? @ -Uncomplicated Side effects of treatment? @ -[No] Exacerbation, Progression, or Severe Exacerbation? @ -[No] Poses a threat to life or bodily function? How? (Chest pain, USA, AL, pneumonia, PE, COPD, DKA, ARF, appy, cholecystitis, CVA, Diverticulitis, Homicidal, Suicid al, threat to staff... and all critical care pts) @ -[No] - Lab Data Result diagrams: 11/28/24 10:29 11/28/24 10:29 Lab Results 11/28/24 11/28/24 11/28/24 Range/Units 10:03 10: 10: WBC 7.43 (4.50-10.00) 10*3/uL RBC 4.78 (4.40-5.60) 10*6/uL Hgb 14.7 (13.0-17.0) g/dL Hct 41.2 (39.6-50.0) % MCV 86.2 (80.0-97.0) fL MCH 30.8 (27.0-32.0) pg MCHC 35.7 (32.0-37.0) g/dL Plt Count 338 (140-440) 10*3/uL MPV 11.1 (9.5-12.2) fL Immature Gran % (Auto) 0.3 % Neutrophils % 61.0 % Lymphocytes % 27.9 % Monocytes % 9.0 % Eosinophils % 0.9 % Basophils % 0.9 % Immature Gran # 0.02 (0.00-0.04) 10*3/uL Neutrophils # 4.53 (1.80-7.70) 10*3/uL Lymphocytes # 2.07 (0.90-5.00) 10*3/uL Monocytes # 0.67 (0.20-1.00) 10*3/uL Eosinophils # 0.07 (0.04-0.35) 10*3/uL Basophils # 0.07 (0.00-0.10) 10*3/uL Sodium 141 (137-145) mmol/L Potassium 5.1 (3.5-5.1) mmol/L Chloride 105 (98-107) mmol/L Carbon Dioxide 28 (22-30) mmol/L Anion Gap 8 mmol/L BUN 9 (9-20) mg/dL Creatinine 0.92 (0.66-1.25) mg/dL Est GFR (CKD-EPI)AfAm >90 (>60 ml/min/1.73 sqM) Est GFR (CKD-EPI)NonAf >90 (>60 ml/min/1.73 sqM) Glucose 102 H (74-99) mg/dL Plasma Lactic Acid Shaun (0.7-2.0) mmol/L Calcium 9.7 (8.4-10.2) mg/dL Total Bilirubin 0.9 (0.2-1.3) mg/dL AST 36 (17-59) U/L ALT 22 (4-49) U/L Alkaline Phosphatase 43 (38-126) U/L Total Protein 7.3 (6.3-8.2) g/dL Albumin 4.6 (3.5-5.0) g/dL Amylase 45 (30-110) U/L Lipase 158 (23-300) U/L Urine Color Yellow Urine Appearance Clear (Clear) Urine pH 5.5 (5.0-8.0) Ur Specific [place] 1.020 (1.001-1.035) Urine Protein Negative (Negative) Urine Glucose (UA) Negative (Negative) Urine Ketones 1+ H (Negative) Urine Blood Negative (Negative) Urine Nitrite Negative (Negative) Urine Bilirubin Negative (Negative) Urine Urobilinogen <2.0 (<2.0) mg/dL Ur Leukocyte Esterase Negative (Negative) 11/28/24 Range/Units 10:29 WBC (4.50-10.00) 10*3/uL RBC (4.40-5.60) 10*6/uL Hgb (13.0-17.0) g/dL Hct (39.6-50.0) % MCV (80.0-97.0) fL MCH (27.0-32.0) pg MCHC (32.0-37.0) g/dL Plt Count (140-440) 10*3/uL MPV (9.5-12.2) fL Immature Gran % (Auto) % Neutrophils % % Lymphocytes % % Monocytes % % Eosinophils % % Basophils % % Immature Gran # (0.00-0.04) 10*3/uL Neutrophils # (1.80-7.70) 10*3/uL Lymphocytes # (0.90-5.00) 10*3/uL Monocytes # (0.20-1.00) 10*3/uL Eosinophils # (0.04-0.35) 10*3/uL Basophils # (0.00-0.10) 10*3/uL Sodium (137-145) mmol/L Potassium (3.5-5.1) mmol/L Chloride (98-107) mmol/L Carbon Dioxide (22-30) mmol/L Anion Gap mmol/L BUN (9-20) mg/dL Creatinine (0.66-1.25) mg/dL Est GFR (CKD-EPI)AfAm (>60 ml/min/1.73 sqM) Est GFR (CKD-EPI)NonAf (>60 ml/min/1.73 sqM) Glucose (74-99) mg/dL Plasma Lactic Acid Shaun 1.0 (0.7-2.0) mmol/L Calcium (8.4-10.2) mg/dL Total Bilirubin (0.2-1.3) mg/dL AST (17-59) U/L ALT (4-49) U/L Alkaline Phosphatase (38-126) U/L Total Protein (6.3-8.2) g/dL Albumin (3.5-5.0) g/dL Amylase (30-110) U/L Lipase (23-300) U/L Urine Color Urine Appearance (Clear) Urine pH (5.0-8.0) Ur Specific [place] (1.001-1.035) Urine Protein (Negative) Urine Glucose (UA) (Negative) Urine Ketones (Negative) Urine Blood (Negative) Urine Nitrite (Negative) Urine Bilirubin (Negative) Urine Urobilinogen (<2.0) mg/dL Ur Leukocyte Esterase (Negative) Disposition Clinical Impression: Abdominal pain of unknown etiology Disposition: HOME SELF-CARE Condition: Fair Instructions (If sedation given, give patient instructions): Abdominal Pain (ED) Additional Instructions: Follow-up with PCP and gastroenterology for ongoing management and evaluation of abdominal pain. Is patient prescribed a controlled substance at d/c from ED?: No Referrals: Kuldeep Freire DO [Primary Care Provider] - 1-2 days Galina Banegas MD [STAFF PHYSICIAN] - 1-2 days Time of Disposition: 12:17
[2024-11-28 10:54] LABS: Basophils # (A) 0.07 10*3/uL (0.00-0.10); Basophils % (A) 0.9 %; Eosinophils # (A) 0.07 10*3/uL (0.04-0.35); Eosinophils % (A) 0.9 %; HCT 41.2 % (39.6-50.0); HGB 14.7 g/dL (13.0-17.0); Lymphocytes # (A) 2.07 10*3/uL (0.90-5.00); Lymphocytes % (A) 27.9 %; MCH 30.8 pg (27.0-32.0); MCHC 35.7 g/dL (32.0-37.0); MCV 86.2 fL (80.0-97.0); Monocytes # (A) 0.67 10*3/uL (0.20-1.00); Monocytes % (A) 9.0 %; Neutrophils # (A) 4.53 10*3/uL (1.80-7.70); Neutrophils % (A) 61.0 %; Platelet Count 338 10*3/uL (140-440); RBC 4.78 10*6/uL (4.40-5.60); RDW 12.4 % (11.5-14.5); WBC 7.43 10*3/uL (4.50-10.00)
[2024-11-28 11:04] LABS: ALT 22 U/L (4-49); African American GFR (CKD) >90 (>60 ml/min/1.73 sqM); Albumin 4.6 g/dL (3.5-5.0); Amylase 45 U/L (30-110); Anion Gap 8 mmol/L; Blood Urea Nitrogen 9 mg/dL (9-20); Calcium 9.7 mg/dL (8.4-10.2); Carbon Dioxide 28 mmol/L (22-30); Chloride 105 mmol/L (98-107); Glucose 102 mg/dL (74-99); Lipase 158 U/L (23-300); Non-African American GFR(CKD) >90 (>60 ml/min/1.73 sqM); Sodium 141 mmol/L (137-145); Total Protein 7.3 g/dL (6.3-8.2)
[2024-11-28 11:16] LABS: AST 36 U/L (17-59); Alkaline Phosphatase 43 U/L (38-126); Potassium 5.1 mmol/L (3.5-5.1)
[2024-11-28] MEDS: SODIUM CHLORIDE 0.9% 1,000 ML IV ONE (11:20)
[2024-11-28] MEDS: LIDOCAINE VISCOUS 2% 15 ML CUP PO ONE (11:21)
[2024-11-28] MEDS: FAMOTIDINE 20 MG/2 ML VIAL IV STA (11:22)
[2024-11-28] MEDS: PANTOPRAZOLE 40 MG/10 ML VIAL IVP STA (11:22)
--- NOTE | 2024-11-28 11:39 | CT ---
EXAMINATION TYPE: CT abdomen pelvis wo con DATE OF EXAM: 11/28/2024 COMPARISON: 04/09/2020 CLINICAL INDICATION: Male, 34 years old with history of abdominal pain; PHH, Suprapubic pain radiatin g to back for 2 wks. No fever, dysuria or urgency. Burning pain to lower abdomen. TECHNIQUE: CT scan of the abdomen and pelvis is performed without oral or IV contrast. CT DLP: 846.1 mGycm Automated exposure control for dose reduction was used. FINDINGS: Within the limitations of a non-contrast study, the following observations are made. LUNG BASES: No significant abnormality is appreciated. LIVER/GB: Area of low attenuation falciform ligament compatible with focal fatty infiltration. PANCREAS: No significant abnormality is seen. SPLEEN: No significant abnormality is seen. ADRENALS: No significant abnormality is seen. KIDNEYS: No significant abnormality is seen. Bladder limited by decompression. BOWEL: No significant abnormality is seen. Appendix not seen. Correlate for prior appendectomy. GENITAL ORGANS: No gross abnormality seen. LYMPH NODES: No greater than 1cm abdominal or pelvic lymph nodes are appreciated. OSSEOUS STRUCTURES: No significant abnormality is seen. OTHER: No significant additional abnormality is seen. IMPRESSION: No renal stones or hydronephrosis is seen bilaterally. [facility], , 11/28/2024 11:37 AM
[2024-11-28 12:36] VITALS: BP 120/88; PULSE 64; RESP 18
[2024-11-29 12:51] LABS: C. trachomatis,PCR Negative (Negative)
[2024-11-29 13:10] LABS: N. gonorrhoeae,PCR Negative (Negative)
== END 2024-11-28 12:35 | disposition home or self-care (01) ==
LOC: EC 09:49
DX: R10.30 Lower abdominal pain, unspecified (principal); Z88.1 Allergy status to other antibiotic agents; Z87.891 Personal history of nicotine dependence
CPT/HCPCS: 36415; 74176; 80053; 81003; 82150; 83605; 83690; 85025; 87491; 87591; 99284